=== PATIENT | female | born 1990 | race Caucasian/White ===

== ENCOUNTER 2022-09-04 14:56 | Outpatient (CLI) | payer MEDICARE, MEDICAID, SELFPAY ==
--- NOTE | 2022-09-04 15:00 | CRLHL7_ITS ---
For Patients: As a result of the Century Cures Act, medical imaging exams and procedure reports are released immediately into your electronic medical record. You may view this report before your referring provider. If you have questions, please contact your health care provider. INDICATION: Acute DVT of right lower extremity, unspecified vein. Known thrombus diagnosed on 08/30/2022 in [place]. Patient currently on Eliquis. Increased pain and swelling. COMPARISON: None available. TECHNIQUE: A compression venous ultrasound exam was performed of the right lower extremity using spence-scale imaging, color Doppler and spectral Doppler analysis. FINDINGS: Sonographic imaging of the right lower extremity demonstrates normal compressibility and color Doppler venous blood flow within the common femoral vein, deep femoral vein, and the proximal greater saphenous vein. There is thrombus within the right mid to distal femoral vein, popliteal vein, and posterior tibial and peroneal veins. 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 There are both occlusive and nonocclusive portions of the thrombus. Limited imaging of the contralateral groin demonstrates a normal spectral waveform and color Doppler venous blood flow within the left common femoral vein. IMPRESSION: 1. Positive for acute DVT involving the right femoral, popliteal, posterior tibial, and peroneal veins. 2. Findings discussed with Dina Johnson at 4:52 p.m. on 09/04/2022. Dictated by Natali Jordan MD @ 09/04/2022 4:18:50 PM (Electronically Signed)
--- NOTE | 2022-09-12 10:38 | ONC.NURNOTE ---
Received referral from [facility] for acute DVT for patient. Obgyn Hospitalist Physician contacted [facility] that still missing information, they note that patient has a guardian and that they are waiting on the appropriate paperwork in order to send all information. Report from ultrasound was printed out. Will wait to schedule until notes are received from [facility].
== END 2022-09-04 14:57 | disposition home or self-care (01) ==
LOC: US 14:58
PROVIDERS: PCP Family Medicine; Visit Provider Family Medicine
DX: I82.401 Acute embolism and thrombosis of unspecified deep veins of right lower extremity (principal); I82.621 Acute embolism and thrombosis of deep veins of right upper extremity
CPT/HCPCS: 93971

== ENCOUNTER 2023-03-31 08:31 | Day surgery (SDC) | payer MEDICARE, MEDICAID, SELFPAY ==
[2023-03-31] VITALS (19 sets, daily range): BP systolic 93–118; BP diastolic 56–75; PULSE 69–104; RESP 16–22; TEMP 36.4–37.5; O2SAT 88–100; BMI 32.1
[2023-03-31] MEDS: LACTATED RINGERS 1000 ML 1,000 ML 100 ML IV ×2 (09:10→11:44)
[2023-03-31] MEDS: SODIUM CHLORIDE 0.9 % (FLUSH) 10 ML SYRINGE IVF (09:10)
[2023-03-31] MEDS: ETHYL CHLORIDE 1 APPLICATION 1 APPLIC TOPICAL (09:10)
[2023-03-31] MEDS: MIDAZOLAM HCL 1 MG/ML inj IVP (09:15)
--- NOTE | 2023-03-31 09:43 | P.GYNPRC_ITS ---
Procedure Note Date of procedure: 03/31/23 Pre-op diagnosis: Menorrhagia with irregular cycle, dysmenorrhea, mild developmental delay Post-op diagnosis: same Procedure: Total laparoscopic hysterectomy Bilateral salpingectomies Diagnostic cystoscopy Anesthesia: GETA Complications: None. Surgeon: Amy Sanchez MD Technical Research Scientist: Ivonne Cesar Pathology: specimen obtained, sent to pathology Disposition: PACU Procedure Description: After obtaining informed consent, the patient was taken to the operating room where general anesthesia was obtained without difficulty. She was prepared and draped in the normal sterile fashion in the low dorsal lithotomy position. A Paul catheter was inserted into the bladder and left to gravity drainage. A medium Graves open-sided speculum was introduced into the vagina. The cervix was visualized and grasped along its anterior lip with a single-tooth tenaculum. The uterus was gently sounded. Sound length was found to be [] cm. The cervix was gently dilated to a #5 dilator. I then placed a [small/medium/large] VCare uterine manipulator. The tenaculum and speculum were removed. The green VCare cup was digitally pressed up against the cervix and then cinched in place with the blue accessory cup. I then changed gloves and my attention was turned to the abdomen. The inferior aspect of the umbilical fold was injected with 0.25% Marcaine plain. A 12 mm vertical incision was then made within the umbilical fold using a scalpel. A direct entry technique was used to place an 11 mm laparoscopic port with CO2 gas set to a 5 mmHg. The trocar was removed leaving the sleeve in place. The CO2 gas flow was turned to high flow to achieve pneumoperitoneum. The 10 mm laparoscope was used then to carefully inspect the abdomen and pelvis with findings noted above. Pictures were taken for documentation purposes. The patient was placed in Trendelenburg positioning. Two additional 11 mm ports were placed in the right and left lower quadrants under direct visualization after first anesthetizing the skin and fascia with 0.25% Marcaine plain. Once the ports were in place, the VCare manipulator was used to elevate the uterus. The ureters were identified bilaterally along their courses in the pelvic sidewalls. The VCare cup was visualized and palpated with a blunt grasper. The right tube [and ovary] [was/were] elevated with a graspers. The halo device was used to [seal the right infundibulopelvic ligament vessels and transect them/dissect the tube from it's ovarian and broad ligament and cornual attachments before removing the tube through a lower port]. Excellent hemostasis was obtained. [The remaining broad ligament attachments were sealed and transected with the halo device.] The right round ligament was then sealed in a wide swath and transected with the halo. Excellent hemostasis was obtained. The broad ligament was then opened using the halo anteriorly and posteriorly along the cervix from the right within the confines of the VCare cup. Pressure was maintained on the uterine manipulator the whole time. The right uterine vessels were sealed in a wide swath and transected with the halo, then the tissues over the VCare cup edge on the right side were thinned using the halo to the midline posteriorly and anteriorly so that the fascial layer could be identified. The left tube [and ovary] [was/were] elevated with a graspers. The halo device was used to [seal the left infundibulopelvic ligament vessels and transect them/dissect the tube from it's ovarian and broad ligament and cornual attachments before removing the tube through a lower port]. Excellent hemostasis was obtained. [The remaining broad ligament attachments were sealed and transected with the halo device.] The left round ligament was then sealed in a wide swath and transected with the halo. Excellent hemostasis was obtained. The broad ligament was then opened using the halo anteriorly and posteriorly along the cervix from the left within the conf elidia of the VCare cup. Pressure was maintained on the uterine manipulator the whole time. The left uterine vessels were sealed in a wide swath and transected with the halo, then the tissues over the VCare cup edge on the left side were thinned using the halo to the midline posteriorly and anteriorly so that the fascial layer could be identified. Once an adequate dissection was made circumferentially, the halo was removed and the gyrus J-hook used to incise the tissue circumferentially around the cervix within the groove of the VCare cup. Once the dissection was completed circumferentially, I was able to go below and remove the uterine manipulator and the uterus. The uterus was left in the vagina to aid in maintaining pneumoperitoneum. The vaginal cuff was reapproximated in a running fashion with a V-Loc suture starting from the left side and running across to the right and then back to the midline where the suture was cut flush with the tissues. The pelvis was copiously irrigated and hemostasis visualized. Preparations were then made for cystoscopy. Fluorescein was administered intravenously along with the IV fluids. The Paul catheter was removed. The patient was flattened out. Cystoscopy was performed using sterile normal saline as distending medium. The bladder was carefully inspected and noted to be free of filling defects or suture material. Both ureteral orifices were easily visualized and fluorescein tinged urine jets were noted from both sides. The cystoscope was then removed. The Paul catheter was replaced into the bladder. I then changed gloves again and my attention was once again turned to the abdomen. The abdomen and pelvis were again irrigated and inspected for hemostasis. [Fariba was placed over the vaginal cuff and raw edges for extra hemostasis.] All instruments were then removed under direct visualization. Pneumoperitoneum was allowed to escape. The fascia was reapproximated at the umbilicus with 0 Vicryl. The skin at all 3 port sites was closed in a subcuticular fashion with 4-0 Vicryl. LiquiBand was then placed over the incisions. The patient tolerated the procedure well. Sponge, lap, needle, and instrument counts were reported as correct x2. The patient was taken to the recovery room awake and in stable condition. She did receive 2 g of IV Ancef preoperatively. Uterine weight was [] g. PATHOLOGY SPECIMEN(S): []
[2023-03-31 09:57] LABS: Creatinine* 0.7 mg/dL (0.5-1.5); Est. Creatinine Clearance* 98.71; Estimated Glomerular Filt Rate 117 ml/min
[2023-03-31] MEDS: CEFAZOLIN 2 GM INJ IVP (10:55)
--- NOTE | 2023-03-31 11:01 | P.NB_ITS ---
Nerve Block Nerve Block Time Seen by Provider: 10:52 Date Seen: 03/31/23 Type of block requested by surgeon for post-operative analgesia: TAP Side: bilateral Time out performed: Yes Verification of patient name: Yes Verification of date of : Yes Site marking: site marked Name of person performing procedure: Joby Continuous monitoring Was continuous monitoring of O2 sat, B/P, almond paste mixer, recorded every 15 minutes?: Yes Procedure Checklist: sterile prep, needles and gloves Ultrasound guided. Images saved: Yes Medications given in 5ml increments after negative aspiration: Marcaine %: 0.25 mL: 30 Needle gauge: 20 and Exparel mL: 10 Patient tolerated procedure well: Yes Additional comments: Needle noted adjacent to nerve Block Charges Block Charge (with Pro Fee): TAP Bilateral Use of Ultrasound Machine for Block: Yes- US Guidance/pain block
--- NOTE | 2023-03-31 11:02 | W.ANESCHARGE ---
Anesthesia Charges Start Date/Time Anesthesia Start Date: 03/31/23 Anesthesia Start Time: 10:14 Stop Date/Time Anesthesia Stop Date: 03/31/23 Anesthesia Stop Time: 14:24
[2023-03-31] MEDS: BUPIVACAINE 0.25% 30 ML 20 ML INJECTION (11:25)
--- NOTE | 2023-03-31 13:16 | P.GSOP_ITS ---
Operative Note Pre-op diagnosis: 1. Intraoperative consult for firm and dilated appendix. Post-op diagnosis: Same Type of Procedure: 1. Laparoscopic appendectomy. Indications: 32-year-old female was undergoing a hysterectomy. Her appendix was visualized intraoperatively and was firm to palpation and minimally dilated. OBGYN service asked made to perform an appendectomy. This was discussed with the patient's mother who was waiting same-day surgery and she gave her consent to proceed. Procedure Description: When the operating room was entered laparoscopic ports were already in place and hysterectomy was completed. Patient's infraumbilical 10 mm port was upsized to a 12 mm port. An additional 5 mm port was placed in the left upper quadrant under direct visualization. The appendix was visualized and was minimally dilated with no suppurative exudate overlying the appendix. The appendix was then mobilized off the abdominal wall with Olympus Powerseal. The appendiceal artery was not clearly visualized. The appendiceal mesentery was divided from the appendix with the Powerseal. When the appendix was circumferentially diss ected from the appendiceal mesentery, the mesentery was examined closely. A pulsation was noted in the appendiceal fat. There was no active bleeding but I elected to place a 5 mm clip over the area where the proposed artery was thought to be. The appendiceal base was clearly visualized. The appendix was then stapled off the cecum with Endo-ETHAN vascular load. The appendix was placed into the bag and removed from the abdomen through the infraumbilical incision. The appendix was sent to pathology. The fascia of infraumbilical incision was then closed with 2 interrupted 0-0 Vicryl sutures. At this time I left the operating room and OBGYN continued with their final parts of the procedure. Findings: Minimally dilated and firm to palpation appendix. Anesthesia: GETA Surgeon: Gary Ramos MD Estimated blood loss (mL): 2 Specimen: Appendix Condition: stable Disposition: no change Date of procedure: 03/31/23
--- NOTE | 2023-03-31 14:28 | P.GYNPRC_ITS ---
Procedure Note Date of procedure: 03/31/23 Pre-op diagnosis: Dysmenorrhea, Menorrhagia with irregular cycle, mild developmental delay Post-op diagnosis: other (Same, plus endocervical polyp and dilated, firm appendix) Procedure: Endocervical polypectomy Total laparoscopic hysterectomy Bilateral salpingectomies Diagnostic cystoscopy General surgery consult (Dr. Ramos) Appendectomy (Dr. Ramos) Vaginal repair Anesthesia: GETA Complications: None. Surgeon: Amy Sanchez Workers' Compensation Magistrate: Ivonne Cesar Estimated blood loss (mL): 100 IV fluids (mL): 2,000 Urine Output (mL): 600 Pathology: specimen obtained, sent to pathology (Endocervical polyp, uterus, bilateral fallopian tubes, appendix) Condition: stable Disposition: PACU Findings: Intact hymen, which tore with placement of VCare uterine manipulator. Polyp arising from the endocervix, extruding from the cervical os. Normal uterus, fallopian tubes and ovaries bilaterally. Dilated, firm appendix. Procedure Description: After obtaining informed consent, the patient was taken to the operating room where general anesthesia was obtained without difficulty. She was prepared and draped in the normal sterile fashion in the low dorsal lithotomy position. A Paul catheter was inserted into the bladder and left to gravity drainage. A small Linda open-sided speculum was introduced into the vagina. A cervical polyp was identified. This was grasped with a ring forceps and twisted on its base until it came free. The cervix was grasped along its anterior lip with a single-tooth tenaculum. The uterus was found to be retroverted. The uterus gently dilated to a #5 dilator, beginning with the smallest dilator available. I then placed a small VCare uterine manipulator. In the process, the hymenal tissue tore on both the right and the left at the 3-4 o'clock and the 7-8 o'clock positions. The tenaculum and speculum were removed. The green VCare cup was digitally pressed up against the cervix and then cinched in place with the blue accessory cup. I then changed gloves and my attention was turned to the abdomen. The inferior aspect of the umbilical fold was injected with 0.25% Marcaine plain. A 12 mm vertical incision was then made within the umbilical fold using a scalpel. A direct entry technique was attempted to place an 11 mm laparoscopic port with CO2 gas set to a 5 mmHg. This was unsuccessful, so 2 small Silvia clamps were used to elevate the fascia, which was then incised sharply with Deshpande scissors. The underlying peritoneum was grasped with 2 Arlette clamps and also entered sharply with scissors. The 11 mm laparoscopic port was then placed through the defect without difficulty in fixed in place with the attached balloon. The trocar was removed leaving the sleeve in place. The CO2 gas flow was turned to high flow to achieve pneumoperitoneum. The 10 mm laparoscope was used then to carefully inspect the abdomen and pelvis with findings noted above. Pictures were taken for documentation purposes. The patient was placed in Trendelenburg positioning. Two additional ports were placed in the right (11 mm) and left (5 mm) lower quadrants under direct visualization after first anesthetizing the skin and fascia with 0.25% Marcaine plain. Once the ports were in place, the VCare manipulator was used to elevate the uterus. The ureters were identified bilaterally along their courses in the pelvic sidewalls. The VCare cup was visualized and palpated with a blunt grasper. The right tube was elevated with a graspers. The Olympus Powerseal device was used to dissect the tube from its ovarian and broad ligament and cornual attachments before removing the tube through a lower port. Excellent hemostasis was obtained. The right round ligament was then sealed in a wide swath and transected with the Olympus Powerseal. Excellent hemostasis was obtained. The broad ligament was then opened using the Olympus Powerseal anteriorly and posteriorly along the cervix from the right within the confines of the VCare cup. Pressure was maintained on the uterine manipulator the whole time. The right uterine vessels were sealed in a wide swath and transected with the Olympus Powerseal, then the tissues over the VCare cup edge on the right side were thinned using the Olympus Powerseal to the midline posteriorly and anteriorly so that the fascial layer could be identified. The left tube was elevated with a graspers. The Olympus Powerseal device was used to dissect the tube from its ovarian and broad ligament and cornual attachments before removing the tube through a lower port. Excellent hemostasis was obtained. The left round ligament was then sealed in a wide swath and transected with the Olympus Powerseal. Excellent hemostasis was obtained. The broad ligament was then opened using the Olympus Powerseal anteriorly and posteriorly along the cervix from the left within the confines of the VCare cup. Pressure was maintained on the uterine manipulator the whole time. The left uterine vessels were sealed in a wide swath and transected with the Olympus Powerseal, then the tissues over the VCare cup edge on the left side were thinned using the Olympus Powerseal to the midline posteriorly and anteriorly so that the fascial layer could be identified. Once an adequate dissection was made circumferentially, Sajanlab spatula used to incise the tissue circumferentially around the cervix within the groove of the VCare cup. Once the dissection was completed circumferentially, I was able to go below and remove the uterine manipulator and the uterus. The uterus was left in the vagina to aid in maintaining pneumoperitoneum. The vaginal cuff was reapproximated in a running fashion with a V-Loc suture starting from the left side and running across to the right and then back to the midline where the suture was cut flush with the tissues. The pelvis was copiously irrigated and hemostasis visualized. At this point, general surgeon Dr. Ramos was consulted for appendectomy. Please see her separate note for details of this procedure. A 4th laparoscopic port (5 mm) was inserted by Dr. Ramos, and the umbilical port was extended to 12 mm. Preparations were then made for cystoscopy. Methylene blue was administered intravenously along with the IV fluids. The uterus was removed from the vagina. The Paul catheter was removed. The patient was flattened out. Cystoscopy was performed using sterile normal saline as distending medium. The bladder was carefully inspected and noted to be free of filling defects or suture material. Both ureteral orifices were easily visualized and blue-tinged urine jets were noted from both sides. The cystoscope was then removed. The Paul catheter was replaced into the bladder. There was some active bleeding noted in the vagina. The vaginal cuff was inspected using a small Linda speculum, and found to be hemostatic. The bleeding was found to be coming from 2 hymenal tears at the introitus. These were oversewn in a running locking fashion with 3-0 chromic. Excellent he mostasis was visualized. I then changed gloves again and my attention was once again turned to the abdomen. The abdomen and pelvis were again irrigated and inspected for hemostasis. The Luis-Zeny device was used to reapproximate the fascia in the right lower quadrant using an interrupted suture of 0 Vicryl. The fascia had already been reapproximated at the umbilicus with [address] Ramos at the conclusion of the appendectomy. All instruments were then removed under direct visualization and pneumoperitoneum was allowed to escape. Three interrupted sutures of 3-0 Vicryl were used at the umbilicus to reapproximate the subcutaneous adipose tissue. The skin at all 4 port sites was closed in a subcuticular fashion with 4-0 Monocryl (3 port sites) and 4-0 Vicryl (RLQ port). Surgical glue was then placed over the incisions. The patient tolerated the procedure well. Sponge, lap, needle, and instrument counts were reported as correct x2. The patient was taken to the recovery room awake and in stable condition. She did receive 2 g of IV Ancef preoperatively and 30 mg IV Toradol at the conclusion of the procedure. A postoperative debriefing was done at the conclusion of the procedure, which confirmed the procedures done and the pathology specimens to be sent. Uterine weight was 82 g.
--- NOTE | 2023-03-31 14:31 | W.ANESCHARGE ---
Anesthesia Charges Start Date/Time Anesthesia Start Date: 03/31/23 Anesthesia Start Time: 10:14 Stop Date/Time Anesthesia Stop Date: 03/31/23 Anesthesia Stop Time: 14:24
[2023-03-31] MEDS: LACTATED RINGERS 1000 ML 1,000 ML 35 ML IV (14:54)
--- NOTE | 2023-03-31 15:09 | SUR.PHASEI ---
patient met discharge criteria per anesthesia
[2023-03-31] MEDS: KETOROLAC 30 MG/ML inj IVP (20:39)
[2023-04-01 00:12] VITALS: BP 127/69; PULSE 101; RESP 16; TEMP 37.1; O2SAT 93
[2023-04-01] MEDS: KETOROLAC 30 MG/ML inj IVP (02:38)
[2023-04-01 04:21] VITALS: BP 103/63; PULSE 89; RESP 16; TEMP 36.6; O2SAT 95
[2023-04-01] MEDS: ENOXAPARIN 40 MG/0.4 ML INJ SUBCUT (06:18)
[2023-04-01 06:44] LABS: Hemoglobin* 11.9 gm/dL (12.0-16.0); Platelet Count* 184 K/uL (140-440)
[2023-04-01 06:50] LABS: Creatinine* 0.6 mg/dL (0.5-1.5); Est. Creatinine Clearance* 115.16; Estimated Glomerular Filt Rate 121 ml/min
[2023-04-01 07:29] VITALS: BP 116/69; PULSE 85; RESP 16; TEMP 36.4; O2SAT 97
[2023-04-01 07:34] VITALS: BP 116/69; PULSE 85; RESP 16; TEMP 36.4; O2SAT 97
[2023-04-01] MEDS: ACETAMINOPHEN 160 MG/5 ML CUP 650 MG PO (08:49)
--- NOTE | 2023-04-01 10:13 | PM.GYNDS1 ---
DS: Providers Provider Time Seen by Provider: 09:00 Date Seen: 04/01/23 Date of admission: 03/31/2023 Primary care physician: Irene Mason MD Admitting Clinician: Amy Sanchez MD Attending Physician on discharge: Amy Sanchez MD Date of Discharge: 04/01/23 DS: Diagnosis Discharge Diagnosis (1) Status post laparoscopic hysterectomy: Status: Acute Problem details: Laparoscopic hysterectomy with bilateral salpingectomies, endocervical polypectomy, diagnostic cystoscopy (2) Status post appendectomy: Status: Acute Problem details: Done at time of hysterectomy BELT CLEANER-Discharge Summary Hospital Course Hospital Course Narrative: Patient is a 32 year old admitted on 03/31/2023 for surgical management of dysmenorrhea and menorrhagia. Her past medical history is significant for mild developmental delay and a history of DVT. Indication for surgery: dysmenorrhea and menorrhagia. Intraoperative findings were notable for an endocervical polyp, normal uterus and bilateral fallopian tubes and ovaries, and a dilated firm appendix. She had an uncomplicated surgery. Postoperative course has been uneventful. Vitals have been stable. She has remained afebrile. Today, on postoperative day 1, she reports the pain is well controlled. She has been able to ambulate Without difficulty. She is tolerating regular diet. She is passing flatus. Paul catheter has been removed, and she is voiding without difficulty. Time Spent with Patient Time attestation: Total time spent providing and/or coordinating discharge services: Time spent: Less than 30 minutes BELT CLEANER - Exam Physical Exam: Vital signs: Temp Pulse Resp BP Pulse Ox O2 Del Method O2 Flow Rate 97.6 F 85 16 116/69 97 Room Air 0 04/01/23 07:34 04/01/23 07:34 04/01/23 07:34 04/01/23 07:34 04/01/23 07:34 04/01/23 07:34 04/01/23 07:34 Constitutional: Constitutional: no acute distress Routine Respiratory Exam: Respiratory: Present CTA bilaterally; Absent crackles, rhonchi or wheezes Routine Cardiovascular Exam: Cardiovascular: Present RRR; Absent murmur Routine Abdominal Exam: Abdominal: Present normal bowel sounds and soft; Absent distended or tenderness Comments: Laparoscopic incision sites clean, dry, intact Routine Extremities Exam: Extremities: Present normal inspection; Absent calf tenderness or pedal edema Detailed Lower Extremity Exam: Comments: SCDs in place Routine Psychiatric Exam: Psychiatric: Present normal affect BELT CLEANER - DS: Data Data Completed and Pending Labs on day of discharge: Labs from last 24 hours 04/01/23 03/31/23 06:14 09:25 Hgb 11.9 L Plt Count 184 Creatinine 0.6 Estimated Creat Clear 115.16 Estimated GFR 121 Blood Type A Positive Antibody Screen NEGATIVE Procedures Procedures: Procedures Operation Date: 03/31/23 09:55 Actual Procedure Side Surgeon p Total Laparoscopic Hysterectomy, Bilateral Salpingectomies, Diagnostic Cystoscopy, cervical polypectomy Amy Sanchez MD s Laparoscopic Appendectomy Gary Ramos MD s Vaginal Repair Amy Sanchez MD Complications: none Discharge Plan Discharge Disposition: Home, Self-Care Discharging Surgeon: Amy Sanchez Follow-Up Appointment: 2 weeks in [facility] Prescriptions: New oxycodone 5 mg/5 mL Solution 5 mg PO Q6H PRNQty: 100 0RF Continued fluoxetine 20 mg/5 mL (4 mg/mL) solution 20 mg PO ONCE albuterol sulfate [Ventolin HFA] 90 mcg/actuation HFA aerosol inhaler inhalation cetirizine 1 mg/mL solution 10 mg PO DAILY Eliquis DVT-PE Treat 30D Start 5 mg (74 tabs) tablets,dose pack PO Activity Level: Activity as Tolerated Discharge Diet: Regular Patient Instructions: General Anesthesia (DC), Laparoscopic Appendectomy (DC), Post-Operative Instructions: Appendectomy Additional Instructions: Discharge instructions were reviewed with the patient including signs and symptoms of infection and medications to use for pain.? Because she will be restarting her Eliquis tomorrow, she should rely on the Tylenol and oxycodone if needed, rather than using the ibuprofen. A good bowel regimen was also recommended. ? No lifting greater than 20-25 pounds for 6 weeks. Nothing per vagina for 6 weeks. Off work or school for 4-6 weeks, may return as tolerated while maintaining lifting restrictions. Forms: Work/School Release Follow-up: Irene Mason MD [Primary Care Provider] - Discharge Orders: Discharge Order (Routine); Ordered 04/01/23 Ordered By: Amy Sanchez
[2023-04-01 10:54] VITALS: BP 97/68; PULSE 85; RESP 16; TEMP 36.8; O2SAT 97
[2023-04-01 11:05] VITALS: BP 97/68; PULSE 85; RESP 16; TEMP 36.8; O2SAT 97
--- NOTE | 2023-04-01 12:53 | PC.NURSE ---
At 1025 RN updated MD that patient voided. See orders.
== END 2023-04-01 11:03 | disposition home or self-care (01) ==
LOC: OR 08:31 → OB 11:06
PROVIDERS: Surgery; PCP Family Medicine; Visit Provider Obstetrics & Gynecology
PROC: 0UT94ZZ Resection of Uterus, Percutaneous Endoscopic Approach (ICD-10-PCS; CPT 58571; principal; 2023-03-31 09:45)
PROC: 0DTJ4ZZ Resection of Appendix, Percutaneous Endoscopic Approach (ICD-10-PCS; CPT 44970; 2023-03-31 09:45)
PROC: 0UQG0ZZ Repair Vagina, Open Approach (ICD-10-PCS; CPT 58571; 2023-03-31 09:45)
DX: N94.6 Dysmenorrhea, unspecified (principal); N92.1 Excessive and frequent menstruation with irregular cycle; N84.1 Polyp of cervix uteri; D25.1 Intramural leiomyoma of uterus; K38.8 Other specified diseases of appendix; R62.50 Unspecified lack of expected normal physiological development in childhood; G89.18 Other acute postprocedural pain
CPT/HCPCS: 58571; 57500; 44970; 00840; 36415; 64488; 76942; 82565; 85018; 85049; 86850; 86900; 86901; 88304; 88305; 88307; A9270; C9290; J0330; J0665; J0690; J1100; J1170; J1650; J1885; J2250; J2371; J2405; J2704; J2710; J3010; J3475; J7120

== ENCOUNTER 2023-07-05 16:04 | Outpatient (CLI) | payer MEDICARE, MEDICAID, SELFPAY | END 2023-07-05 16:05 | disposition home or self-care (01) | LOC: AMB 07-07 10:14 | PROVIDERS: PCP Family Medicine; Visit Provider Student in an Organized Health Care Education/Training Program | DX: S09.90XA Unspecified injury of head, initial encounter (principal); W01.198A Fall on same level from slipping, tripping and stumbling with subsequent striking against other object, initial encounter; Y93.66 Activity, soccer; Y92.322 Soccer field as the place of occurrence of the external cause | CPT/HCPCS: A0998 ==

== ENCOUNTER 2024-11-25 12:04 | Outpatient (CLI) | payer MEDICARE, MEDICAID, SELFPAY | END 2024-11-25 12:05 | disposition home or self-care (01) | LOC: AMB 11-28 09:29 | PROVIDERS: PCP Family Medicine; Visit Provider Internal Medicine | DX: M79.609 Pain in unspecified limb (principal); Z86.718 Personal history of other venous thrombosis and embolism | CPT/HCPCS: A0998 ==

== ENCOUNTER 2024-11-25 12:41 | Emergency (ER) | payer MEDICARE, MEDICAID, SELFPAY ==
--- OUTSIDE RECORDS SUMMARY | 2023-08-17 09:00 | XMS_ITS | Continuity of Care Document ---
Author Organization [facility] Address [address] [address] [place] [address] Phone Care Team Providers Care Senior Caregiver Name Role Phone Shade Mason MD, Jake Galloway Unavailabl e Advance Directives Directive Yes / No Effective Date File Name No Information Encounters Encounter Description Practice Location Reason(s) For Visit Diagnoses Date Provider Providers Copied on Encounter [facility], [address] [address], [place], [place], [id number], [place] tel:[phone] [facility] No Information Shade Joseph. [address] [facility], [facility] [address], [place], [place], [id number], [place]. tel:[phone] Family History Family Member Type Diagnosis Age At Onset No Information Payers Payer name Insurance type Covered alliance party ID Authoriza tion(s) No Information Social History Type Description Quantity Date Captured Comments Sex Female Smoking Status No Information Chief Complaint And Reason For Visit No Information Reason For Referral Reason For Referral No Information History Of Present Illness Encounter Date Complaint History Of Prese nt Illness No Information Functional Status Date Functional Assessmen t No Information Instructions Date Instruction Additional Infor mation No Information Assessments Type Assessment Date No Information Patient Care Teams Name Effective Dates (start - stop) Status Members No Information
--- OUTSIDE RECORDS SUMMARY | 2023-08-17 09:00 | XMS_ITS | Continuity of Care Document ---
Author Organization [facility] Address [address] [address] [place] [address] Phone Care Team Providers Care Building Mover Name Role Phone Shade Mason MD, Jake Galloway Unavailabl e Advance Directives Directive Yes / No Effective Date File Name No Information Encounters Encounter Description Practice Location Reason(s) For Visit Diagnoses Date Provider Providers Copied on Encounter [facility], [address] [address], [place], [place], [id number], [place] tel:[phone] [facility] No Information Shade Joseph. [address] [facility], [facility] [address], [place], [place], [id number], [place]. tel:[phone] Family History Family Member Type Diagnosis Age At Onset No Information Payers Payer name Insurance type Covered green party ID Authoriza tion(s) No Information Social [...]
--- OUTSIDE RECORDS SUMMARY | 2024-10-11 10:45 | XMS_ITS | Encounter Summary ---
Author Organization [facility] Address [address] [place] [id number] Care Team Providers Care Tutor Coordinator Name Role Phone Elsewhere, Pcp Primary Care Provider Unavailabl e Reason for Visit * Reason Onset Date Comments Pre-visit Intake 10/11/2024 Encounter Details Date Type Department Care Team (Latest Contact Info) Description 10/11/2024 10:45 AM CDT Clinical Communication Virtual Review in [place], [place] [address] [place] [address] Pre-visit Intake Social History Tobacco Use Types Packs/Day Years Used Date Smoking Tobacco: Never Smokeless Tobacco: Never Tobacco Cessation:Counseling Given: Not Answered Alcohol Use Standard Drinks/Week Comments Yes 1 (1 standard drink = 0.6 oz pur e alcohol) [facility] Utilities Answer Date Recorded In the past 12 months has [facility] [employer], oil, or water [employer] threatened to shut off services in your home? No 07/19/2023 Humiliation, Afraid, Rape, and Kick questionnair e Answer Date Recorded Within the last year, have y ou been afraid of your partner or ex-partner? No 07/08/2022 Within the last year, have y ou been humiliated or emotionally abused in other ways by your partner or ex-partner? No Within the last year, have y ou been kicked, hit, slapped, or otherwise physically hurt by your partner or ex-partner? No 07/08/2022 Within the last year, have y ou been raped or forced to have any kind of sexual activity by your partner or ex-partner? No 07/08/2022 Social Connection and Isolat ion Panel [NHANES] Answer Date Recorded In a typical week, how many times do you talk on the phone with family, friends, or neighbors? More than three times a week 07/08/2022 How often do you get togethe r with friends or relatives? More than three times a week 07/08/2022 How often do you attend chur or quaker services? 1 to 4 times per year 07/08/2022 Do you belong to any clubs o r organizations such as zoroastrianism groups, unions, fraternal or athletic groups, or school groups? Yes 07/08/2022 How often do you attend meet ings of the clubs or organizations you belong to? More than 4 times per year 07/08/2022 Are you , , di vorced, , never , or living with a partner? Never 07/08/2022 AUDIT-C Answer Date Recorded Q1: How often do you have a drink containing alc ohol? 2-4 times a month 07/08/2022 Q2: How many drinks containi ng alcohol do you have on a typical day when you are drinking? 1 or 2 07/08/2022 Q3: How often do you have si x or more drinks on one occasion? Never 07/08/2022 Overall Financial Resource Strain (CARDIA) Answe r Date Recorded How hard is it for you to pa y for the very basics like food, housing, medical care, and heating? Not hard at all 07/08/2022 [facility] - Occupational Stress Questionnaire Answer Date Recorded Do you feel stress - tense, restless, nervous, or anxious, or unable to sleep at night because your mind is troubled all the time - these days? To some extent 07/08/2022 Exercise Vital Sign Answer Date Recorde d On average, how many days pe r week do you engage in moderate to strenuous exercise (like a brisk walk)? 4 days 07/19/2023 On average, how many minutes do you engage in exercise at this level? 50 min 07/19/2023 Hunger Vital Sign Answer Date Recorded Within the past 12 months, y ou worried that your food would run out before you got the money to buy more. Never true 07/19/19 Within the past 12 months, t he food you bought just didn't last and you didn't have money to get more. Never true 07/19/2023 PRAPARE - Transportation Answer Date Re corded In the past 12 months, has l ack of transportation kept you from medical appointments or from getting medications? No 09/2023 In the past 12 months, has l ack of transportation kept you from meetings, work, or from getting things needed for daily living? No 07/19/2023 Nutrition Answer Date Recorded On average, how many serving s of fruits and vegetables do you eat per day (serving size is equal to 1 cup or approximately the size of a tennis ball)? 3-5 07/19/2023 Dental Answer Date Recorded Dental: Regular Dentist Yes 07/08/19 Employment Answer Date Recorded Employment status Unemployed/not in e paid workforce but seeking employment 07/19/2023 Housing Stability Answer Date Recorded What is your living situation today? [facility] 07/19/2023 Education Answer Date Recorded What is the highest level of school you have completed or the highest degree you have received? 12th grade 07/08/2022 Comments Unknown Sex and Gender Information Value Date Recorded Sex Assigned at Female 07/08/2022 2:29 PM PICKING TABLE WORKER Legal Sex Female 3:08 PM PICKING TABLE WORKER Gender Identity Female 07/08/2022 2:29 PM PICKING TABLE WORKER Sexual Orientation Straight 07/08/2022 2: 29 PM PICKING TABLE WORKER documented as of this encounter Plan of Treatment Upcoming Encounters Date Type Department Care Team (Late st Contact Info) Description 12/21/2024 2:30 PM CDT Office Visit Division of Plastic Surgery in [place], [place] [address] [place] [phone] Layla Lara APRN, C.N.P., D.N.P. [address] [place] [phone] 02/10/2025 10:30 AM CDT Clinical Communication Virtual Review in [place], [place] [address] [place] [address] 02/14/2025 11:15 AM CDT Office Visit Department of Dermatology in [place], [place] [address] [place] [address] Casper Avila M.D. [address] [place] [address] documented as of this encounter Visit Diagnoses Not on filedocumented in this encounter Care Teams Tutor Coordinator Relationship Specialty Start Date End Date Elsewhere, Pcp PCP - General Family Medicine 05/29/17 documented as of this encounter
--- OUTSIDE RECORDS SUMMARY | 2024-10-12 | XMS_ITS | Encounter Summary ---
Author Organization [facility] Address [address] [place] [address] Care Team Providers Care Meteorological Engineer Name Role Phone Elsewhere, Pcp Primary Care Provider Unavailabl e Encounter Details Date Type Department Care Team (Late st Contact Info) Description 10/12/2024 Ancillary Procedure Department of Dermatology Social History Tobacco Use Types Packs/Day Years Used Date Smoking Tobacco: Never Smokeless Tobacco: Never Alcohol Use Standard Drinks/Week Comments Yes 1 (1 standard drink = 0.6 oz pur e alcohol) [facility] Utilities Answer Date Recorded In the past 12 months has e electric, gas, oil, or water [employer] threatened to shut off services in your [...] 07/08/2022 How often do you attend chur ch or methodist services? 1 to 4 times per year 07/08/2022 Do you belong to any clubs o r organizations such as baptism groups, unions, fraternal or athletic groups, or [...] and heating? Not hard at all 07/08/2022 [facility] - Occupational Stress [...] money to buy more. Never true 07/19/19 24 Within the past 12 months, t he [...] your living situation today? I have a [facility] place to live 07/19/2023 Education Answer Date Recorded What is the highest level of school you have completed or the highest degree you have received? 12th grade 07/08/2022 Comments Unknown Sex and Gender Information Value Date Recorded Sex Assigned at Female 07/08/2022 2:29 PM ACTION FINISHER Legal Sex Female 3:08 PM ACTION FINISHER Gender Identity Female 07/08/2022 2:29 PM ACTION FINISHER Sexual Orientation Straight 07/08/2022 2: 29 PM ACTION FINISHER documented as of this encounter Plan of Treatment Upcoming Encounters Date Type Department Care Team (Late st Contact Info) Description 12/21/2024 2:30 PM CDT Office Visit Division of Plastic Surgery in [place], [place] [address] [place] [phone] Layla Lara APRN, C.N.P., D.N.P. [address] [place] [phone] 02/10/2025 10:30 AM CDT Clinical Communication Virtual Review in [place], [place] [address] [place] [phone] 02/14/2025 11:15 AM CDT Office Visit Department of Dermatology in [place], [place] [address] [place] [phone] Casper Avila M.D. [address] [place] [phone] documented as of this encounter Procedures Procedure Name Priority Date/Time Associated Diagnosis Comments DERMATOLOGY IMAGE EXAM Routine 10/12/2024 12:00 AM CDT documented in this encounter Results * Nose 510-Dermatology Image Exam (10/12/2024 12:00 AM CDT) Narrative [facility] - 10/13/2024 9:23 AM CDT This order has been created and auto-finalized to support the import of images acquired without order. The clinical documentation to support these images can be found on the encounter that produced images. us Provider Not In System IMG NON RAD IMAGING PROCE DURES Final Result [facility] NA documented in this encounter Visit Diagnoses Not on filedocumented in this encounter Care Teams Meteorological Engineer Relationship Specialty Start Date End Date Elsewhere, Pcp PCP - General Family Medicine 05/29/17 documented as of this encounter
--- OUTSIDE RECORDS SUMMARY | 2024-10-12 14:40 | XMS_ITS | Encounter Summary ---
Author Organization [facility] Address [address] [place] [phone] Care Team Providers Care Blind Slat Stapling Machine Operator Name Role Phone Elsewhere, Pcp Primary Care Provider Unavailabl e Reason for Referral * Outpatient (Routine) - Authorized Specialty Diagnoses / Procedures Referred By Te eid Referred To Contact Dermatology Diagnoses Tumor Skin Uncertain Behavior Procedures [employer] Karrie Bowen M.D. [address] [place] [phone] Phone: tel: fax: [facility] Referral ID Status Reason Start Date Expiration Date V isits Requested Visits Authorized [id number] Authorized 10/12/2024 01/12/2026 1 1 Reason for Visit * Appointment Request (Routine) - Closed Specialty Diagnoses / Procedures Referred By Te eid Referred To Contact Dermatology Diagnoses Lesion Skin Nose Referral ID Status Reason Start Date Expiration Date Visits Re quested Visits Authorized [id number] Closed 10/10/2024 01/10/2026 1 1 Encounter Details Date Type Department Care Team (Latest Contact Info) Description 10/12/2024 2:40 PM CDT Comprehensive Visit Department of Dermatology in [place], [place] [address] [place] [phone] Rodrigo Driver M.D. [address] [place] [phone] Tumor Skin Uncertain Behavior (Primary Dx); Screening Examination Skin Cancer Discharge Disposition: Home or Self Care Social History Tobacco Use Types Packs/Day Years Used Date Smoking Tobacco: Never Smokeless Tobacco: Never Alcohol Use Standard Drinks/Week Comments Yes 1 (1 standard drink = 0.6 oz pur e alcohol) [facility] Utilities Answer Date Recorded In the past 12 months has e [employer], [employer], oil, or water [employer] threatened to shut off services in your [...] How often do you attend chur or sikhism services? 1 to 4 times per year 07/08/2022 Do you belong to any clubs o r organizations such as evangelical groups, unions, fraternal or athletic groups, or [...] and heating? Not hard at all 07/08/2022 [facility] - Occupational Stress Questionnaire Answer Date Recorded [...] Answer Date Recorded Employment status Unemployed/not in th e paid workforce but seeking employment 07/19/2023 Housing Stability Answer Date Recorded What is your living situation today? I have a [facility] place to live 07/19/2023 Education Answer Date Recorded What is the highest level of school you have completed or the highest degree you have received? 12th grade 07/08/2022 Comments Unknown Sex and Gender Information Value Date Recorded Sex Assigned at Female 07/08/2022 2:29 PM TIRE ADJUSTER Legal Sex Female 3:08 PM TIRE ADJUSTER Gender Identity Female 07/08/2022 2:29 PM TIRE ADJUSTER Sexual Orientation Straight 07/08/2022 2: 29 PM TIRE ADJUSTER documented as of this encounter Patient Instructions * Patient Instructions* Gayathri Tenorio R.N. - 10/12/2024 2:40 PM CDT ~Keep pressure bandage on for 24 hours. Around 3:30 PM tomorrow, please take bandage off. If bandage comes off early, you can start wound cares early. ~Wash the area (right nose) twice a day with soap and water then apply Vaseline and a Band-Aid if it will stay in place or re-apply Vaseline when needed if the Band-Aid does not stay on. ~Keep area of out any submergible water. Shower is fine after 24 hours. ~No vigorous activities that can increase your blood pressure for 24-48 hours as this can increase risk of bleeding. ~Please apply pressure to area if bleeding for 40 minutes. If bleeding does not stop, please seek medical attention. documented in this encounter Consult Notes * Rodrigo Driver M.D. - 10/12/2024 2:40 PM CDT Correspondence To: Rodrigo Driver M.D. Referring provider: No ref. provider found Supervising business intelligence consultant, Dr. Sisi Magaña , supervised the visit. SUBJECTIVE CHIEF COMPLAINT/REASON FOR VISIT Nasal lesion HISTORY OF PRESENT ILLNESS Nuzhat Ballard is a 34 y.o. female who has been referred by No ref. provider found on 10/12/24 for the above chief complaint. They have no history of skin cancer. No significant family history of family members developing skin cancers at a young age. They have one spot(s) that they are worried about today that has been there for around 3 weeks in his rapidly growing. She does not note any pain, but rather pruritus. REVIEW OF SYSTEMS Denies history of any other rash or lesion MEDICAL/SURGICAL HISTORY Reviewed OBJECTIVE PHYSICAL EXAMINATION General: Well appearing female in no acute distress. Alert and Oriented. Skin: I examined the face. On the right nasal ala, there is a shiny, pearly papule, with rolled borders and prominent telangiectasias, measuring 1 x 1.1 cm On the left shoulder, there are multiple benign ABCDE nevi ASSESSMENT / PLAN # Skin tumor of uncertain behavior, right nasal ala Differential dx: BCC Size: 1.1 x 1 Photographs obtained. Shave biopsy performed. CONSENT Discussed the risks, benefits, alternatives, and the necessity of other members of the healthcare team participating in the procedure. All questions answered and consent given. PROCEDURAL PAUSE Prior to the procedure, final verification of the patient identity and correct marked surgical sitewas performed. SHAVE BIOPSY PROCEDURE We explained the potential diagnosis and recommended that we obtain a biopsy. The risks and benefits of the procedure were discussed, and the patient consented to these procedures. Using 1% lidocainewith epinephrine for local anesthesia, a shave biopsy was obtained from aforementioned location above. Biopsy submitted to Dermatopathology for H&E. Special stains will be performed as indicated.The bleeding was well controlled with application of aluminum chloride. Dressing was applied, and wound care instructions were explained. Biopsy results and any further recommendations will be communicated to the patient by letter. 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 Patient otherwise has no palmar pits or history of any odontogenic cysts. She has no significant history of skin cancer. No concern for Gorlin syndrome. That has not a strong association of skin cancer development in her prior diagnosis of 2q deletion. Sun protection and sun avoidance were reviewed with the patient. The warning signs and symptoms of skin cancer and the proper use of sunscreens were reviewed. My recommendation is using SPF >30, with frequent applications every 2 hours. Follow-up: For skin check Orders Placed This Encounter [employer] [place] Contact Numbers: [facility] page [[phone]] [facility] page [[phone]] [facility] page [[phone]] Clinic call [[phone]] [place] Contact Numbers: [facility] page [[phone]] [facility] [place] page [[phone] or [phone]] [facility] page [[phone]] [facility] page [[phone]] [facility] page [[phone]] [facility] page [[phone]] Has patient consent ([id number]) been obtained/recorded?: Yes Areas/Protocols to be Photographed: right nasal ala Region: [place] Region [[id number]] Image Type: Still Images Ordering Provider Name: RODRIGO DRIVER [[id number]] Ordering Provider Specialty: Dermatology All questions answered. Rodrigo Driver PGY-4 Dermatology Resident Cosigned by Sisi Carlson M.B.B.S. at 10/12/2024 3:40 PM CDT Associated attestation - Sisi Carlson M.B.B.S. - 10/12/2024 3:40 PM CDT I saw and evaluated the patient, participating in the zhou portions of the service. I reviewed the resident???s note. I agree with the resident???s findings and plan. I was present for the zhou/critical portion and immediately available for the entire procedure. documented in this encounter Plan of Treatment Upcoming Encounters Date Type Department Care Team (Late st Contact Info) Description 12/21/2024 2:30 PM CDT Office Visit Division of Plastic Surgery in [place], [place] 200 [place] [phone] Layla Lara APRN, C.N.P., D.N.P. [address] [place] [phone] 02/10/2025 10:30 AM CDT Clinical Communication Virtual Review in [place], [place] [address] [place] [phone] 02/14/2025 11:15 AM CDT Office Visit Department of Dermatology in [place], [place] [address] [place] [phone] Casper Avila M.D. [address] [place] [phone] Scheduled Orders Name Type Priority Associated Diagnoses Orde r Schedule [employer] Procedures Routine Tumor Skin Uncertain Behavior Ordered: 10/12/2024 documented as of this encounter Procedures Procedure Name Priority Date/Time Associated Diagnosis Comments DERMATOPATHOLOGY Routine 10/12/2024 3:15 PM CDT Tumor Skin Uncertain Behavior documented in this encounter Results * Dermatopathology (10/12/2024 3:15 PM CDT) 10/17/2024 10:24 AM T LYNETTE Participated in the Interpretation Coco Dunbar M.D. -Dermatopathology Fellow 10/17/2024 10:24 AM [facility] Report electronically signed by Amna Bolanos M.D. 10/17/2024 10:24 AM [facility] Gross Description Received in formalin labeled with the patient's name, medical record number, and right ala nasi is a 0.9 x 0.8 x 0.1 cm pale-catalan skinshave biopsy. There is a 0.8 x 0.7 cm catalan-red, raised, firm, crusted, erythematous lesion with irregular borders eccentrically located onthe skin surface. Specimen is bisected longitudinally and submitted entirely in cassette A1. Grossed by MARKUS. 10/17/2024 10:24 AM CDT PDRM Interpretation FINAL DIAGNOSIS A. 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 10/17/2024 10:24 AM CDT PDRM Skin (Right Ala Nasi) 10/12/2024 3:15 PM CDT us Rodrigo Driver M.D. LAB PATH DERM ORDERABLES Fi nal Result Performing Organization Address City/State/[facility] Co de Phone Number [facility] [place] 200 [place] [address], [facility] PDRM [address] [place] [phone] documented in this encounter Visit Diagnoses Diagnosis Tumor Skin Uncertain Behavior- Primary Screening Examination Skin Cancer documented in this encounter Care Teams Blind Slat Stapling Machine Operator Relationship Specialty Start Date End Date Elsewhere, Pcp PCP - General Family Medicine 05/29/17 documented as of this encounter
--- OUTSIDE RECORDS SUMMARY | 2024-10-26 | XMS_ITS | Encounter Summary ---
Author Organization [facility] Address [address] [place] [address] Care Team Providers Care Drug Department Worker Name Role Phone Elsewhere, Pcp Primary Care Provider Unavailabl e Encounter Details Date Type Department Care Team (Late st Contact Info) Description 10/26/2024 Ancillary Procedure Department of Dermatology Social History Tobacco Use Types Packs/Day Years Used Date Smoking Tobacco: Never Smokeless Tobacco: Never Alcohol Use Standard Drinks/Week Comments Yes 1 (1 standard drink = 0.6 oz pur e alcohol) [facility] Utilities Answer Date Recorded In the past 12 months has e electric, gas, oil, or water [employer] threatened to shut off services in your [...] often do you attend chur ch or alevism services? 1 to 4 times per year 07/08/2022 Do you belong to any clubs o r organizations such as catholic groups, unions, fraternal or athletic groups, or [...] and heating? Not hard at all 07/08/2022 [facility] - Occupational [...] your living situation today? I have a [facility] place to live 07/19/2023 Education Answer Date Recorded What is the highest level of school you have completed or the highest degree you have received? 12th grade 07/08/2022 Comments Unknown Sex and Gender Information Value Date Recorded Sex Assigned at Female 07/08/2022 2:29 PM LEAD WAREHOUSE ASSOCIATE Legal Sex Female 3:08 PM LEAD WAREHOUSE ASSOCIATE Gender Identity Female 07/08/2022 2:29 PM LEAD WAREHOUSE ASSOCIATE Sexual Orientation Straight 07/08/2022 2: 29 PM LEAD WAREHOUSE ASSOCIATE documented as of this encounter Plan of Treatment Upcoming Encounters Date Type Department Care Team (Late st Contact Info) Description 12/21/2024 2:30 PM CDT Office Visit Division of Plastic Surgery in [place], [place] [address] [place] [phone] Layla Lara APRN, C.N.P., D.N.P. [address] [place] [phone] 02/10/2025 10:30 AM CDT Clinical Communication Virtual Review in [place], [place] [address] [place] [phone] 02/14/2025 11:15 AM CDT Office Visit Department of Dermatology in [place], [place] [address] [place] [phone] Casper Avila M.D. [address] [place] [phone] documented as of this encounter Goals Goal Patient Goal Type Associated Problems Recent Progress Patient-Stated? Author Autogenera pauline Goal Care Plan Autogenerated Problem No Kari Llamas RSiri documented as of this encounter Procedures Procedure Name Priority Date/Time Associated Diagnosis Comments DERMATOLOGY IMAGE EXAM Routine 10/26/2024 12:00 AM CDT documented in this encounter Results * nose, right ala 24 Mohs micrographic surgery-Dermatology Image Exam (10/26/2024 12:00 AM CDT) Narrative [facility] - 10/26/2024 12:47 PM CDT This order has been created and auto-finalized to support the import of images acquired without order. The clinical documentation to support these images can be found on the encounter that produced images. us Provider Not In System IMG NON RAD IMAGING PROCE DURES Final Result [facility] NA documented in this encounter Visit Diagnoses Not on filedocumented in this encounter Additional Health Concerns Active Problems Noted Date Diagnosed Date Autogenerated Problem 10/26/2024 documented as of this encounter Care Teams Drug Department Worker Relationship Specialty Start Date End Date Elsewhere, Pcp PCP - General Family Medicine 05/29/17 documented as of this encounter
--- OUTSIDE RECORDS SUMMARY | 2024-10-26 08:00 | XMS_ITS | Encounter Summary ---
Author Organization [facility] Address [address] [place] [id number] Care Team Providers Care Road Cleaner Name Role Phone Elsewhere, Pcp Primary Care Provider Unavailabl e Reason for Referral * Outpatient (Routine) - Authorized Specialty Diagnoses / Procedures Referred By Contac t Referred To Contact Dermatology Casper Avila M.D. [address] [place] [phone] Phone: tel: fax: [facility] Referral ID Status Reason Start Date Expiration Date V isits Requested Visits Authorized [id number] Authorized 10/26/2024 04/27/2026 1 1 Scheduling Instructions Please schedule with Austin sometime in February Reason for Visit * Outpatient (Routine) - Closed Specialty Diagnoses / Procedures Referred By Contac t Referred To Contact Dermatology Diagnoses Malignant Neoplasm Of Nose Squamous Cell Carcinoma Procedures [facility] 1-4 sites Rodrigo Driver M.D. [address] [place] [phone] Phone: tel: fax: [facility] Referral ID Status Reason Start Date Expiration Date Visits Re quested Visits Authorized [id number] Closed 10/17/2024 01/17/2026 1 1 Encounter Details Date Type Department Care Team ([facility] st Contact Info) Description 10/26/2024 8:00 AM CDT Procedure visit Department of Dermatology in [place], [place] 200 [place] [address] Casper Avila M.D. 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 1 to 4 times per year 07/08/2022 Do you belong to any clubs o r organizations such as latter day groups, unions, fraternal or athletic groups, or [...] and heating? Not hard at all 07/08/2022 [facility] - [...] your living situation today? I have a [place] place to live 07/19/2023 Education Answer Date Recorded What is the highest level of school you have completed or the highest degree you have received? 12th grade 07/08/2022 Comments Unknown Sex and Gender Information Value Date Recorded Sex Assigned at Female 07/08/2022 2:29 PM DIRECTOR BUSINESS TRAVEL Legal Sex Female 3:08 PM DIRECTOR BUSINESS TRAVEL Gender Identity Female 07/08/2022 2:29 PM DIRECTOR BUSINESS TRAVEL Sexual Orientation Straight 07/08/2022 2: 29 PM DIRECTOR BUSINESS TRAVEL documented as of this encounter Last Filed Vital Signs Vital Sign Reading Time Taken Comments Blood Pressure 129/85 10/26/2024 7:36 AM CDT Pulse 79 10/26/2024 7:36 AM CDT Temperature - - Respiratory Rate - - Oxygen Saturation - - Inhaled Oxygen Concentration - - Weight - - Height - - Body Mass Index - - documented in this encounter Patient Instructions * Patient Instructions* Amanda Khalil RJairN. - 10/26/2024 8:00 AM CDT documented in this encounter Procedure Notes * Casper Avila M.D. - 10/26/2024 8:00 AM CDT PREOP INDICATION: REMOVAL. Date of Surgery: 10/26/2024 Surgeon: Dr. Casper Avila M.D. Tower Equipment Installer: Dr. Gar Location: [facility] Floor:16 Room:[facility] Visit Type: Outpatient PostOp Diagnosis: Squamous cell carcinoma, grade 1 Anatomic Location: Right nasal ala/medial cheek Preoperative size: 0.8 x 0.9 cm [facility] number: 24, 26 Indication(s) for Mohs Micrographic Surgery: anatomic location where tissue conservation is critical Procedure(s): Mohs micrographic surgery with referred closure. Procedural pause conducted to verify: correct patient identity, procedure to be performed and as applicable, correct side and site, correct patient position, and availability of implants, special equipment or special requirements. INFORMED CONSENT Discussed the risks, benefits, alternatives, and the necessity of other members of the healthcare team participating in the procedure. All questions answered and consent given. PATIENT EDUCATION Ready to learn, no apparent learning barriers were identified; learning preferences include listening. Explained diagnosis and treatment plan; patient expressed understanding of the content. Preoperative medications: None The anesthesia used was 1% lidocaine and 0.25% bupivacaine with 1:200,000 epinephrine. The skin was prepped in a sterile fashion with Hibiclens. Histologic tumor-free margins were obtained in 2 stages (2/ blocks) by standard Mohs micrographic techniques with the Mohs surgeon performing both the surgery and pathology. The final defect depth was down to level of: levator labii superioris alaque nasi . Postoperative size: 1.3 x 0.9 cm. The patient was transferred to the care of Dr. Mueller for wound closure. Estimated blood loss: Minimal. Complications: None. Wound care: Routine Postoperative medications: None documented in this encounter Consult Notes * Casper Avila M.D. - 10/26/2024 8:00 AM CDT SUBJECTIVE CHIEF COMPLAINT/REASON FOR VISIT Biopsy-proven squamous cell carcinoma HISTORY OF PRESENT ILLNESS Nuzhat Ballard is a pleasant 34 y.o. female who is seen in consultation at the request of Rodrigo Driver M.D. for biopsy-proven squamous cell carcinoma involving the right ala. She is accompanied today by her mother. 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 She lives in a detention. She tolerated the biopsy on her nose quite well. There is no known family history of early-onset colon cancer or sebaceous neoplasms. OBJECTIVE PHYSICAL EXAMINATION General: Awake, alert, in no acute distress, and with appropriate affect. Skin: Examination of the head neck is performed. On the right lateral ala abutting the malar cheek is a 0.9 x 1.3 cm hyperkeratotic nodule. There was no palpable adenopathy in the submental, submandibular, preauricular, or cervical regions. There are no other skin lesions of concern in the areas examined. ASSESSMENT / PLAN #1 Biopsy-proven squamous cell carcinoma, right nasal ala We had an in-depth discussion with the patient and her mother regarding the diagnosis. It is relatively uncommon for this type of skin cancer and the patient of this age. We reviewed with them the possibility of an associated genodermatosis. There is no family history to support this. We will continue to monitor closely. We outlined the goals of care for the day with the primary goal of removing the skin cancer and then we will focus on the reconstruction. She in her mother agreed. We are able to achieve negative histologic margins using Mohs surgery for the squamous cell carcinoma. There wasdeep extension at the base of the defect into muscle. Although she was able to tolerate the Mohs adela bruce, due to patient discomfort there were concerns about doing a more extensive reconstruction. Weshould these concerns with the patient and her family and we all agreed to defer reconstruction to our colleagues in Plastic Surgery. Dr. Mueller was gracious enough to add her to his calendar today for evaluation and plan to reconstruction under general surgery. Going forward we had a discussion about the importance of close surveillance. I want to see her back in approximately 4 months and we will continue on this julito for least 2 years. The tumor was 1.5 cm in diameter, well-differentiated, no perineural or lymphovascular invasion was identified. The notable risk factor was invasion intomuscle, making this a [facility] T2a tumor. documented in this encounter Plan of Treatment Upcoming Encounters Date Type Department Care Team (Late st Contact Info) Description 12/21/2024 2:30 PM CDT Office Visit Division of Plastic Surgery in [place], [place] 200 [place] [address] Layla Lara APRN, C.N.P., D.N.P. [address] [place] [address] 02/10/2025 10:30 AM CDT Clinical Communication Virtual Review in [place], [place] 200 [place] [phone] 02/14/2025 11:15 AM CDT Office Visit Department of Dermatology in [place], [place] [address] [place] [phone] Casper Avila M.D. [address] [place] [phone] Scheduled Referrals Name Type Priority Associated Diagnoses Order Schedule Dermatology office visit (clinic) Outpatient Referral Routine Expected: 02/28/2025 (Approximate), Expires: 01/26/2026 documented as of this encounter Goals Goal Patient Goal Type Associated Problems Recent Progress Patient-Stated? Author Autogenera pauline Goal Care Plan Autogenerated Problem No Kari Llamas T, R.N. documented as of this encounter Visit Diagnoses Diagnosis Malignant Neoplasm Of Nose Squamous Cell Carcinoma documented in this encounter Administered Medications Inactive Administered Medications - up to 3 most recent administrations Medication Order MAR Action Action Date Dose Rate Site TNFnjrdfozl-angesjnsv-ZRSFVSVsvmf 0.25%-1%-1:200,000 injection 2-25 mL 2-25 mL, injection, As needed, may repeat if the patient complains of pain/discomfort at the site up to 50 mL for entire procedure, Starting on Thu10/26/24 at 0735, For 1 dayIndications:Malignant Neoplasm Of Nose Squamous Cell Carcinoma Given 10/26/2024 8:35 AM CDT 4 mL Other lidocaine-EPINEPHrine 1%-1:200,000 injection 2-50 mL (Xylocaine w/epi) 2-50 mL, injection, As needed, may repeat if the patient complains of pain/discomfort at the site up to 50 mL for entire procedure, Starting on Thu10/26/24 at 0735, For 1 dayIndications:Malignant Neoplasm Of Nose Squamous Cell Carcinoma Given 10/26/2024 10:05 AM CDT 4 mL Othe r Given 10/26/2024 8:35 AM CDT 4 mL Ot her lidocaine-sodium bicarbonate (buffered) 0.9%-0.84% injection 0-10 mL 0-10 mL, infiltration, Once, On Thu10/26/24 at 0800, For 1 dose, Final lidocaine concentration is 0.9% (9 mg/mL) Given 10/26/2024 8:34 AM CDT 4 mL Other documented in this encounter Additional Health Concerns Active Problems Noted Date Diagnosed Date Autogenerated Problem 10/26/2024 documented as of this encounter Care Teams Road Cleaner Relationship Specialty Start Date End Date Elsewhere, Pcp PCP - General Family Medicine 05/29/17 documented as of this encounter
--- OUTSIDE RECORDS SUMMARY | 2024-10-26 11:30 | XMS_ITS | Encounter Summary ---
Author Organization [facility] Address [address] [place] [phone] Care Team Providers Care Rebar Bender Name Role Phone Elsewhere, Pcp Primary Care Provider Unavailabl e Reason for Referral * Outpatient (Routine) - Closed Specialty Diagnoses / Procedures Referred By Te t Referred To Contact Plastic Surgery Lenora Mueller M.D., D.D.S. [address] [place] [address] Phone: tel: fax: [facility] Referral ID Status Reason Start Date Expiration Date Visits Re quested Visits Authorized [id number] Closed 10/26/2024 04/27/2026 1 1 Scheduling Instructions With Layla Reason for Visit * Appointment Request (Routine) - Closed Specialty Diagnoses / Procedures Referred By Te t Referred To Contact Aesthetic Medicine and Surgery Referral ID Status Reason Start Date Expiration Date Visits Re quested Visits Authorized [id number] Closed 10/26/2024 01/26/2026 1 1 Encounter Details Date Type Department Care Team (Latest Contact Info) Description 10/26/2024 11:30 AM CDT Comprehensive [facility] in [place], [place] [address] [place] [address] Lenora Mueller M.D., D.D.S. 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 Not hard at all 07/08/2022 [facility] - Occupational [...] your living situation today? [facility] 07/19/2023 Education Answer Date Recorded What is the highest level of school you have completed or the highest degree you have received? 12th grade 07/08/2022 Comments Unknown Sex and Gender Information Value Date Recorded Sex Assigned at Female 07/08/2022 2:29 PM PUBLICATIONS SALES REPRESENTATIVE Legal Sex Female 3:08 PM PUBLICATIONS SALES REPRESENTATIVE Gender Identity Female 07/08/2022 2:29 PM PUBLICATIONS SALES REPRESENTATIVE Sexual Orientation Straight 07/08/2022 2: 29 PM PUBLICATIONS SALES REPRESENTATIVE documented as of this encounter Consult Notes * Jessica Kendall M.D., Ph.D. 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 Avila today in Mohs clinic. She was sent to us for reconstructive options. 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 She is here today accompanied by her parents. She is extremelyactive and loves soccer and track and field. 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 She does have a history of a provoked DVT in the setting of prior hormone neuro control for heavy periods. She was seen by the thrombophilia Clinic and found no genetic causes for her blood clot. She is not on blood thinners currently. She is a nonsmoker. On evaluation she has been approximately 1-1/2 x 2 cm full-thickness defect just lateral to the right ala and barely encompassing the malar alar ridge. Like this goes down to bone. There is possible cartilaginous involvement but likely very minimal considering it is at the end of the alar rim. Assessment and plan - Squamous cell carcinoma of the right alar region excise by Dr. Avila in Mohs Clinic on 10/26/2024 She will be listed for Mohs reconstruction with local tissue rearrangement on Thursday. This will be done under general anesthesia. We discussed that this could be a 1-2 stage procedure depending on how things look after the 1st stage. She will have sutures that will need to be removed in approximately 5 days. She should with hold on any heavy activity like soccer or track and field for a few weeks. We discussed scar care briefly. Her parents will be involved in her aftercare. Photos are up-to-date. She was seen and evaluated with Dr. Mueller. documented in this encounter Plan of Treatment Upcoming Encounters Date Type Department Care Team (Late st Contact Info) Description 12/21/2024 2:30 PM CDT Office Visit Division of Plastic Surgery in [address] [phone] Layla Lara APRN, C.N.P., D.N.P. [address] [place] [phone] 02/10/2025 10:30 AM CDT Clinical Communication Virtual Review in [place], [place] 200 [place] [address] 02/14/2025 11:15 AM CDT Office Visit Department of Dermatology in [address] [phone] Casper Avila M.D. [address] [place] [phone] Scheduled Referrals Name Type Priority Associated Diagnoses Orde r Schedule Plastic Surgery office visit (clinic) Outpatient Referral Routine Expected: 11/04/2024, Expires: 01/26/2026 documented as of this encounter Goals Goal Patient Goal Type Associated Problems Recent Progress Patient-Stated? Author Autogenera pauline Goal Care Plan Autogenerated Problem No Kari Llamas T, R.N. documented as of this encounter Visit Diagnoses Diagnosis Malignant Neoplasm Of Nose Squamous Cell Carcinoma- Primary documented in this encounter Additional Health Concerns Active Problems Noted Date Diagnosed Date Autogenerated Problem 10/26/2024 documented as of this encounter Care Teams Rebar Bender Relationship Specialty Start Date End Date Elsewhere, Pcp PCP - General Family Medicine 05/29/17 documented as of this encounter
--- OUTSIDE RECORDS SUMMARY | 2024-10-31 | XMS_ITS | Encounter Summary ---
Author Organization [facility] Address [address] [place] [address] Care Team Providers Care Correspondence Review Clerk Name Role Phone Elsewhere, Pcp Primary Care Provider Unavailabl e Encounter Details Date Type Department Care Team (Late st Contact Info) Description 10/31/2024 Ancillary Procedure Department of Plastic and Reconstructive Surgery Social History Tobacco Use Types Packs/Day Years Used Date Smoking Tobacco: Never Smokeless Tobacco: Never Alcohol Use Standard Drinks/Week Comments Yes 1 (1 standard drink = 0.6 oz pur e alcohol) [facility] Utilities Answer Date Recorded In the past 12 months has e [employer], gas, oil, or water [employer] threatened to shut off services in your [...] often do you attend chur ch or mu-ism services? 1 to 4 times per year 07/08/2022 Do you belong to any clubs o r organizations such as restorationist groups, unions, fraternal or athletic groups, or [...] and heating? Not hard at all 07/08/2022 [facility] - [...] your living situation today? I have a [facility] place to live 07/19/2023 Education Answer Date Recorded What is the highest level of school you have completed or the highest degree you have received? 12th grade 07/08/2022 Comments No Sex and Gender Information Value Date Recorded Sex Assigned at Female 07/08/2022 2:29 PM NEWSPAPER VENDOR Legal Sex Female 3:08 PM NEWSPAPER VENDOR Gender Identity Female 07/08/2022 2:29 PM NEWSPAPER VENDOR Sexual Orientation Straight 07/08/2022 2: 29 PM NEWSPAPER VENDOR documented as of this encounter Plan of Treatment Upcoming Encounters Date Type Department Care Team (Late st Contact Info) Description 12/21/2024 2:30 PM CDT Office Visit Division of Plastic Surgery in [place], [place] [address] [place] [phone] Layla Lara APRN, C.N.P., D.N.P. [address] [place] [phone] 02/10/2025 10:30 AM CDT Clinical Communication Virtual Review in [place], [place] [address] [place] [address] 02/14/2025 11:15 AM CDT Office Visit Department of Dermatology in [place], [place] [address] [place] [phone] Casper Avila M.D. [address] [place] [address] documented as of this encounter Goals Goal Patient Goal Type Associated Problems Recent Progress Patient-Stated? Author Autogenera pauline Goal Care Plan Autogenerated Problem No Kari Llamas, RJairN. documented as of this encounter Procedures Procedure Name Priority Date/Time Associated Diagnosis Comments PLASTIC AND RECON SURGERY IMAGE EXAM Routine 10/31/2024 12:00 AM CDT documented in this encounter Results * Face-Plastic And Recon Surgery Image Exam (10/31/2024 12:00 AM CDT) Narrative [facility] - 11/01/2024 9:35 AM CDT This order has been created [...] documented as of this encounter Care Teams Correspondence Review Clerk Relationship Specialty Start Date End Date Elsewhere, Pcp PCP - General Family Medicine 05/29/17 documented as of this encounter
--- OUTSIDE RECORDS SUMMARY | 2024-10-31 07:57 | XMS_ITS | Encounter Summary ---
Author Organization [facility] Address [address] [place] [phone] Care Team Providers Care Superintendent Radio Communications Name Role Phone Elsewhere, Pcp Primary Care Provider Unavailabl e Encounter Details Date Type Department Care Team (Latest Contact Info) Description 10/31/2024 7:57 AM CDT - 10/31/2024 3:05 PM CDT Hospital Encounter [facility] OR [address] [place] [phone] Lenora Mueller M.D., D.D.S. [address] [place] [phone] Malignant Neoplasm Of Nose Squamous Cell Carcinoma Discharge Disposition: Home or Self Care Social History Tobacco Use Types Packs/Day Years Used Date Smoking Tobacco: Never Smokeless Tobacco: Never Alcohol Use Standard Drinks/Week Comments Yes 1 (1 standard drink = 0.6 oz pur e alcohol) [facility] Utilities Answer Date Recorded In [...] How often do you attend chur or sikh services? 1 to 4 times per year [...] and heating? Not hard at all 07/08/2022 [facility] of Occupat ional Health - Occupational Stress [...] your living situation today? I have a [facility] place to live 07/19/2023 Education Answer Date Recorded What is the highest level of school you have completed or the highest degree you have received? 12th grade 07/08/2022 Comments No Sex and Gender Information Value Date Recorded Sex Assigned at Female 07/08/2022 2:29 PM BARREL CENTERER Legal Sex Female 3:08 PM BARREL CENTERER Gender Identity Female 07/08/2022 2:29 PM BARREL CENTERER Sexual Orientation Straight 07/08/2022 2: 29 PM BARREL CENTERER documented as of this encounter Last Filed Vital Signs Vital Sign Reading Time Taken Comments Blood Pressure 116/82 10/31/2024 2:30 PM CDT Pulse 79 10/31/2024 2:50 PM CDT Temperature 36.8 C (98.2 F) 10/31/2024 1:30 PM CDT Respiratory Rate 13 10/31/2024 2:35 PM CDT Oxygen Saturation 96% 10/31/2024 2:50 PM CDT Inhaled Oxygen Concentration - - Weight 83.2 kg (183 lb 6.8 oz) 10/31/2024 8:22 A M CDT Height 162.6 cm (5' 4) 10/31/2024 8:22 AM CDT Body Mass Index 31.48 10/31/2024 8:22 AM CDT documented in this encounter Medications at Time of Discharge acetaminophen (TylenoL) 160 mg/5 mL liquid Take 31.3 mL (1,000 mg total) by mouth every 6 (six) hours as needed for pain. 10/31/2024 albuterol 90 mcg/actuation inhaler Inhale 2 puffs 4 (four) times a day as needed. 03/12/2022 cetirizine (ZyrTEC) 10 mg tablet Take 1 tablet by mouth daily as needed. 08/12/2013 FLUoxetine (PROzac) 20 mg/5 mL (4 mg/mL) solution Take 10 mg by mouth. 03/12/2022 ibuprofen 50 mg/1.25 mL drops Take 15 mL (600 mg total) by mouth every 6 (six) hours as needed for pain. 10/31/2024 multivitamin tablet Take 1 tablet by mouth daily. 03/11/2024 psyllium (KonsyL) powder Take 1 tsp by mouth as needed. Mix 1 tsp in liquid then take by mouth once daily. No sugar metamucil, orange flavor 03/11/2024 amoxicillin-pot clavulanate (Augmentin) 250-62.5 mg/5 mL suspensionIndicat ions:Malignant Neoplasm Of Nose Squamous Cell Carcinoma Take 10 mL (500 mg total) by mouth 2 (two) times a day for 3 days. Shake Well. 150 mL 10/31/2024 3:41 PM CDT 10/31/2024 mupirocin (Bactroban) 2 % ointment Apply 1 Application topically 2 (two) times a day for 7 days. Apply to right face incision 22 g 2 10/31/2024 3:41 PM CDT 10/31/2024 documented as of this encounter OR Notes * Op Note - Bill Rosen M.B.B.S., M.S. - 10/31/2024 11:42 AM CDT Pre-op Diagnosis Malignant Neoplasm Of Nose Squamous Cell Carcinoma Post-op Diagnosis Malignant Neoplasm Of Nose Squamous Cell Carcinoma Procedure Performed: -rhomboid flap transposition for Moh's defect reconstruction. [place] Driver A first aid attendant actively participated and was necessary for one or more of the following: opening, exposure and visualization, maintaining hemostasis, wound closure resulting in its safe and expeditious completion. Findings As expected Complications None Operative Note Narrative The patient was brought to the operating room and placed in the supine position. After induction ofgeneral anesthesia, the patient was prepped and draped in the usual sterile fashion. A surgical pause was performed to confirm the correct patient and procedure. The right nasal defect crosses the border of the right ala and the right cheek. This measured 12 x 14 mm. We designed a rhomboid flap, measured 10 x 20 mm. We injected lidocaine with epinephrine for field block. The incision was made with scalpel, then with electrocautery. We raised the flap along with the levator labii superioris muscle fascia. To advance the flap, we performed 30mm of skin undermining in the caudal and lateral direction. The flap was then transposed and secured using 4-0 PDS, followed by 5-0 Prolene interrupted skin closure. Bactroban ointment was applied over the incision. This concluded the procedure. Evelio Zelaya., M.S. Cosigned by Lenora Mueller M.D., D.D.S. at 11/03/2024 11:13 AM CDT documented in this encounter Plan of Treatment Upcoming Encounters Date Type Department Care Team (Late st Contact Info) Description 12/21/2024 2:30 PM CDT Office Visit Division of Plastic Surgery in [place], [place] [address] [place] [phone] Layla Lara APRN, C.N.P., D.N.P. [address] [place] [phone] 02/10/2025 10:30 AM CDT Clinical Communication Virtual Review in [place], [place] 200 [place] [phone] 02/14/2025 11:15 AM CDT Office Visit Department of Dermatology in [place], [place] [address] [place] [phone] Casper Avila M.D. [address] [place] [phone] documented as of this encounter Goals Goal Patient Goal Type Associated Problems Recent Progress Patient-Stated? Author Autogenera pauline Goal Care Plan Autogenerated Problem No Kari Llamas RSiir documented as of this encounter Procedures Procedure Name Priority Date/Time Associated Diagnosis Comments RECONSTRUCTION MOHS DEFECT 10/31/2024 10:19 AM CDT Malignant Neoplasm Of Nose Squamous Cell Carcinoma Case Notes LINE ANALYST 759 documented in this encounter Visit Diagnoses Diagnosis Malignant Neoplasm Of Nose Squamous Cell Carcinoma- Primary Malignant Neoplasm Of Nose Squamous Cell Carcinoma documented in this encounter Admitting Diagnoses Diagnosis Malignant Neoplasm Of Nose Squamous Cell Carcinoma documented in this encounter Administered Medications Inactive Administered Medications - up to 3 most recent administrations Medication Order MAR Action Action Date Dose Rate Site acetaminophen liquid 1,000 mg (TylenoL) 1,000 mg, oral, Every 6 hours PRN, mild pain or score 1-3 of 10, Starting on Thu10/31/24 at 1306 chlorhexidine 0.12 % mouthwash 15 mL (Peridex) 15 mL, swish & spit, Once as needed, Chlorhexidine mouthwash (Peridex) should be given if patient did not complete oral care, if completion is greater than 4 hours prior to surgery or procedure start time and they do not have the opportunity to brush their teeth now (or at this time)., Starting on Thu10/31/24 at 0922, For 1 dose, Pre-Op, Instruct patient to swish entire content of Chlorhexidine 0.12% mouthwash (Peridex) 15 mL cup for 30 seconds, then spit, swish & spit. If patient is at risk for aspiration, apply Chlorhexidine 0.12% mouthwash to a swab and gently swab the patient's teeth and gums. Ensure swab is not oversaturated. gentamicin-polymixin B 20 mcg/mL-500 units/mL irrigation bottle (DABS Modified Irrigation) irrigation, Once in surgery, OR use only, Starting on Thu10/31/24 at 0945, For 1 dose, Intra-Op, *IRRIGATION ONLY* ibuprofen suspension 600 mg 600 mg, oral, Every 6 hours PRN, mild pain or score 1-3 of 10, moderate pain or score 4-6 of 10, Starting on Thu10/31/24 at 1306 metoprolol tablet 12.5 mg (Lopressor) 12.5 mg, oral, Once as needed, if patient did not take their last scheduled dose of beta niesha prior to arrival, Starting on Thu10/31/24 at 0922, For 1 dose, Pre-Op, Do not give if patient does not take scheduled beta blockers, if patient is receiving intravenous vasopressors or inotropes, if heart rate is less than 50 beats per minute, if systolic blood pressure is less than 90 mmHg or if diastolic blood pressure is less than 40 mmHg, or if patient has an allergy to metoprolol. mupirocin 2 % ointment 1 Application (Bactroban) 1 Application, topical, 3 times daily, First dose on Thu10/31/24 at 1400, Intra-OpIndications:Malignan t Neoplasm Of Nose Squamous Cell Carcinoma Given 10/31/2024 12:57 PM CDT 1 Application Other sodium chloride 0.9 % injection 10 mL 10 mL, intravenous, As needed, line care, Starting on Thu10/31/24 at 0922, Pre-Op, Peripheral Intravenous Catheter and Rapid Infusion Catheter, prior to blood sampling, post blood transfusion or post blood sampling sodium chloride 0.9 % injection 3 mL 3 mL, intravenous, As needed, line care, Starting on Thu10/31/24 at 0922, Pre-Op, Prior to and following infusion and between multiple consecutive infusions: sodium chloride 0.9 % injection sodium chloride 0.9 % injection 3 mL 3 mL, intravenous, Every 12 hours scheduled, First dose on Thu10/31/24 at 2100, Pre-Op, Peripheral Intravenous Catheter and Rapid Infusion Catheter, when no infusion to maintain patency tranexamic acid 3 g/75 mL (40 mg/mL) in NaCl 0.9% sterile solution 75 mL 75 mL, topical, Once in surgery, OR use only, Starting on Thu10/31/24 at 0945, For 1 dose, Intra-Op, For topical, irrigation, or infiltration use ONLY documented in this encounter Active and Recently Administered Medications Times are shown in CDT. Scheduled Medication Order 10/29/2024 10/30/2024 10/31/2024 BUPivacaine liposome (PF) 266 mg/20 mL (13.3 mg/mL) injection 20 mL (ExpareL) 20 mL, infiltration, Once, On Thu10/31/24 at 1015, For 1 dose, Intra-Op 1015 (Due) ceFAZolin injection 2,000 mg (Ancef) (COMPLETED) 2,000 mg (rounded from 2,080 mg = 25 mg/kg 83.2 kg Dosing weight), intravenous, Once, On Thu10/31/24 at 1015, For 1 dose, Intra-Op, Administer within 1 hour prior to surgical incision For immediate IV push administration, reconstitute vial per IVAG or package insert instructions. See IVAG for administration guidelines., Drug Monitoring Program: Pharmacist to adjust medication dosing based on indication and drug clearance factors., Indications: Prophylaxis, surgical 1110 (Given - Provid er: Kimber Mcgrath M.D.) lidocaine-EPINEPHrine 1 %-1:100,000 injection 30 mL (Xylocaine w/epi) 30 mL, injection, Once, On Thu10/31/24 at 1015, For 1 dose, Intra-Op 1015 (Due) mupirocin 2 % ointment 1 Application (Bactroban) 1 Application, topical, 3 times daily, First dose on Thu10/31/24 at 1400, Intra-Op 1257 (Given - Provid er: Evelio Valentin., M.S. - Comment: right nose/cheek lesion)1400 (Due) sodium chloride 0.9 % injection 3 mL 3 mL, intravenous, Every 12 hours scheduled, First dose on Thu10/31/24 at 2100, Pre-Op, Peripheral Intravenous Catheter and Rapid Infusion Catheter, when no infusion to maintain patency PRN Medication Order 10/29/2024 10/30/2024 10/31/2024 acetaminophen liquid 1,000 mg (TylenoL) 1,000 mg, oral, Every 6 hours PRN, mild pain or score 1-3 of 10, Starting on Thu10/31/24 at 1306 balanced salt solution ophthalmic irrigation (BSS) (CANCELED) As needed, Starting on Thu10/31/24 at 1259, Intra-Op 1259 (Given - Provid er: Savannah Valentin, M.S.) chlorhexidine 0.12 % mouthwash 15 mL (Peridex) 15 mL, swish & spit, Once as needed, Chlorhexidine mouthwash (Peridex) should be given if patient did not complete oral care, if completion is greater than 4 hours prior to surgery or procedure start time and they do not have the opportunity to brush their teeth now (or at this time)., Starting on Thu10/31/24 at 0922, For 1 dose, Pre-Op, Instruct patient to swish entire content of Chlorhexidine 0.12% mouthwash (Peridex) 15 mL cup for 30 seconds, then spit, swish & spit. If patient is at risk for aspiration, apply Chlorhexidine 0.12% mouthwash to a swab and gently swab the patient's teeth and gums. Ensure swab is not oversaturated. gentamicin-polymixin B 20 mcg/mL-500 units/mL irrigation bottle (DABS Modified Irrigation) irrigation, Once in surgery, OR use only, Starting on Thu10/31/24 at 0945, For 1 dose, Intra-Op, *IRRIGATION ONLY* ibuprofen suspension 600 mg 600 mg, oral, Every 6 hours PRN, mild pain or score 1-3 of 10, moderate pain or score 4-6 of 10, Starting on Thu10/31/24 at 1306 lidocaine-EPINEPHrine 1 %-1:100,000 injection (Xylocaine w/epi) (CANCELED) As needed, Starting on Thu10/31/24 at 1138, Intra-Op 1138 (Given - Provid er: Lenora Mueller M.D., D.D.S.) metoprolol tablet 12.5 mg (Lopressor) 12.5 mg, oral, Once as needed, if patient did not take their last scheduled dose of beta niesha prior to arrival, Starting on Thu10/31/24 at 0922, For 1 dose, Pre-Op, Do not give if patient does not take scheduled beta blockers, if patient is receiving intravenous vasopressors or inotropes, if heart rate is less than 50 beats per minute, if systolic blood pressure is less than 90 mmHg or if diastolic blood pressure is less than 40 mmHg, or if patient has an allergy to metoprolol. sodium chloride 0.9 % injection 10 mL 10 mL, intravenous, As needed, line care, Starting on Thu10/31/24 at 0922, Pre-Op, Peripheral Intravenous Catheter and Rapid Infusion Catheter, prior to blood sampling, post blood transfusion or post blood sampling sodium chloride 0.9 % injection 3 mL 3 mL, intravenous, As needed, line care, Starting on Thu10/31/24 at 0922, Pre-Op, Prior to and following infusion and between multiple consecutive infusions: sodium chloride 0.9 % injection tranexamic acid 3 g/75 mL (40 mg/mL) in NaCl 0.9% sterile solution 75 mL 75 mL, topical, Once in surgery, OR use only, Starting on Thu10/31/24 at 0945, For 1 dose, Intra-Op, For topical, irrigation, or infiltration use ONLY documented in this encounter Additional Health Concerns Active Problems Noted Date Diagnosed Date Autogenerated Problem 10/26/2024 documented as of this encounter Care Teams Superintendent Radio Communications Relationship Specialty Start Date End Date Elsewhere, Pcp PCP - General Family Medicine 05/29/17 documented as of this encounter
--- OUTSIDE RECORDS SUMMARY | 2024-10-31 09:44 | XMS_ITS | Encounter Summary ---
Author Organization [facility] Address [address] [place] [phone] Care Team Providers Care Knitting Machine Fixer Head Name Role Phone Elsewhere, Pcp Primary Care Provider Unavailabl e Encounter Details Date Type Department Care Team (Late st Contact Info) Description 10/31/2024 9:44 AM CDT - 10/31/2024 12:28 PM CDT Surgery [facility] MAIN OR [address] [place] [phone] Lenora Mueller M.D., D.D.S. [address] [place] [phone] RECONSTRUCTION RIGHT CHEEK, NOSE MOHS DEFECT USING LOCAL TISSUE REARRANGEMENT Social History Tobacco Use Types Packs/Day Years Used Date Smoking Tobacco: Never Smokeless Tobacco: Never Alcohol Use Standard Drinks/Week Comments Yes 1 (1 standard drink = 0.6 oz pur e alcohol) [facility] Utilities Answer Date Recorded In the [...] week 07/08/2022 How often do you attend [facility] or hindu services? 1 to 4 times per year 07/08/2022 Do you belong to any clubs o r organizations such as temple groups, unions, fraternal or athletic groups, or [...] and heating? Not hard at all 07/08/2022 [facility] of Occupat ional Health - Occupational Stress [...] your living situation today? I have a [facility] place to live 07/19/2023 Education Answer Date Recorded What is the highest level of school you have completed or the highest degree you have received? 12th grade 07/08/2022 Comments No Sex and Gender Information Value Date Recorded Sex Assigned at Female 07/08/2022 2:29 PM SOFTWARE SUPPORT TECHNICIAN Legal Sex Female 3:08 PM SOFTWARE SUPPORT TECHNICIAN Gender Identity Female 07/08/2022 2:29 PM SOFTWARE SUPPORT TECHNICIAN Sexual Orientation Straight 07/08/2022 2: 29 PM SOFTWARE SUPPORT TECHNICIAN documented as of this encounter Last Filed Vital Signs Vital Sign Reading Time Taken Comments Blood Pressure 99/73 10/31/2024 8:22 AM CDT Pulse 73 10/31/2024 8:22 AM CDT Temperature 36.9 C (98.4 F) 10/31/2024 8:22 AM CDT Respiratory Rate - - Oxygen Saturation 98% 10/31/2024 8:22 AM CDT Inhaled Oxygen Concentration - - Weight [...] -rhomboid flap transposition for Moh's defect reconstruction. Upholstery Tech A senior sales assistant actively participated and was necessary for one [...] Office Visit Division of Plastic Surgery in [place], [place] [address] [place] [phone] Layla Lara APRN, C.N.P., D.N.P. [address] [place] [phone] 02/10/2025 10:30 AM CDT Clinical Communication Virtual Review in [place], [place] 200 [place] [phone] 02/14/2025 11:15 AM CDT Office Visit Department of Dermatology in [place], [place] [address] [place] [phone] Casper Avila M.D. [address] [place] [phone] documented as of this encounter Goals Goal Patient Goal Type Associated Problems Recent Progress Patient-Stated? 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 [...] 1306 balanced salt solution ophthalmic irrigation (BSS) As needed, Starting on Thu10/31/24 at 1259, Intra-Op Given 10/31/2024 12:59 PM CDT 15 mL Bilateral chlorhexidine 0.12 % mouthwash 15 mL (Peridex) [...] 1306 lidocaine-EPINEPHrine 1 %-1:100,000 injection (Xylocaine w/epi) As needed, Starting on Thu10/31/24 at 1138, Intra-Op Given 10/31/2024 11:38 AM CDT 6 mL Nose metoprolol tablet 12.5 mg (Lopressor) 12.5 mg, [...] daily, First dose on Thu10/31/24 at 1400, Intra-OpIndications:Malign ant Neoplasm Of Nose Squamous Cell Carcinoma Given [...] 1400, Intra-Op 1257 (Given - Provid er: Belen ValentinB.SJair, M.S. - Comment: right nose/cheek lesion)1400 (Due) [...] documented as of this encounter Care Teams Knitting Machine Fixer Head Relationship Specialty Start Date End Date Elsewhere, Pcp PCP - General Family Medicine 05/29/17 documented as of this encounter
--- OUTSIDE RECORDS SUMMARY | 2024-10-31 10:41 | XMS_ITS | Encounter Summary ---
Author Organization [facility] Address [address] [place] [id number] Care Team Providers Care Molder Fitting Name Role Phone Elsewhere, Pcp Primary Care Provider Unavailabl e Encounter Details Date Type Department Care Team (Late st Contact Info) Description 10/31/2024 10:41 AM CDT Anesthesia Event RST ROMB MAIN OR [address] [place] [phone] Jc Stallworth M.D. [address] [place] [phone] Anesthesia Record Procedure Summary Procedure Name Responsible Anesthesiologist Anesthesia Start Time Anesthesia Stop Time RECONSTRUCTION RIGHT CHEEK, NOSE MOHS DEFECT USING LOCAL TISSUE REARRANGEMENT (Right) Jc Stallworth M.D. 10/31/24 1041 10/31/24 1339 Events Date Time Event Comment 10/31/2024 1041 An Start Machine/Equipme nt Checked Infection Precautions Followed Procedure/Site Verified NPO Status Verified Supine Standard ASA Monitors Applied 1049 An Induction 1052 An Intubation 1054 Turnover to Proceduralist 1142 Proc Start 1256 Proc Fin 1303 Turnover to ANE Staff 1317 Airway Removal Criteria Met 1317 Extubation/Airway Removed 1320 an stop data 1339 An End I completed my handoff to the receiving staff during which we 1. Identified the patient 2. Identified the responsible provider 3. Reviewed the pertinent medical history 4. Discussed the surgical course 5. Reviewed intra-op anesthesia management and issues during anesthesia 6. Set expectations for post-procedure period 7. Allowed opportunity for questions and acknowledgement of understanding. Meds Name Total fentanyl injection 50 mcg/mL 100 mcg lidocaine 2% (mg) injection 100 mg succinylcholine 20 mg/mL injection 100 m g phenylephrine 100 mcg/mL injection 50 mc g ondansetron 4 mg/2 mL injection 4 mg propofol 10 mg/mL infusion 1,008.8 mg propofol 10 mg/mL injection 200 mg phenylephrine infusion 80 mcg/mL in NaCl 0.9% 250 mL (premix/CNR) 3.17 mg ceFAZolin injection 2,000 mg (Ancef) 2 g dexAMETHasone (Decadron) injection 4 mg/ mL 4 mg remifentaniL 20 mcg/mL in NaCl 0.9% 100 mL infusion (Ultiva) 2.23 mg aprepitant (Aponvie) injection 32 mg/4.4 mL (7.2 mg/mL) 32 mg heparin injection 5,000 Units/mL 5,000 U nits haloperidoL (HaldoL) injection 5 mg/mL 1 mg Lactated Ringers Free Drip 900 mL * Agents No agents on file. * Blood No blood administrations on file. Lines, Drains, and Airways Type Details Placement Removal Wound 10/31/24; 1158; Y; Incision; Nose; Right 10/31/24 1158 by Rosibel Molina, R.NJair Peripheral IV Placement Date: 10/13 03/09; Placement Time: 0934; Catheter Size: 20 G; Orientation: Anterior, Left, Lower, Proximal; Location: Forearm; Site Prep: Chlorhexidine (Preferred); Technique: Anatomical landmarks; Inserted by: fracisco; Insertion Attempts: 1; Removal Date: 10/31/24; Removal Time: 1502; Removal Reason: Completion of therapy 10/31/24 0934 by Darlene Erickson 10/31/24 1502 by Rhonda Marshall RSiri ETT Placement Date: 10/13 03/09; Placement Time: 1052 (created via procedure documentation); Mask Ventilation: Oral/Nasal airway needed; Technique: Video laryngoscopy; Type: Standard ETT; Single Lumen Tube Size: 7 mm; Cuffed: Yes; Location: Oral; Grade View: Grade 1; Insertion Attempts: 1; Placement Verification: Bilateral breath sounds, Positive ETCO2, Symmetrical chest wall movement; Removal Date: 10/31/24; Removal Time: 13110/31/24 1052 by Kimber Mcgrath M.D. 10/31/24 1317 by Kimber Mcgrath M.D. documented in this encounter Social History Tobacco Use Types Packs/Day Years Used Date Smoking Tobacco: Never Smokeless Tobacco: Never Alcohol Use Standard Drinks/Week Comments Yes 1 (1 standard drink = 0.6 oz pur e alcohol) [facility] Utilities Answer Date Recorded In the past 12 months has e [employer], gas, oil, or water [employer] threatened to shut off services in your [...] How often do you attend chur or judaism services? 1 to 4 times per year 07/08/2022 Do you belong to any clubs o r organizations such as pentecostalism groups, unions, fraternal or athletic groups, or [...] and heating? Not hard at all 07/08/2022 [facility] [place] of Occupat ional Health - Occupational Stress [...] your living situation today? I have a [facility] place to live 07/19/2023 Education Answer Date Recorded What is the highest level of school you have completed or the highest degree you have received? 12th grade 07/08/2022 Comments No Sex and Gender Information Value Date Recorded Sex Assigned at Female 07/08/2022 2:29 PM WASH TANK TENDER Legal Sex Female 3:08 PM WASH TANK TENDER Gender Identity Female 07/08/2022 2:29 PM WASH TANK TENDER Sexual Orientation Straight 07/08/2022 2: 29 PM WASH TANK TENDER documented as of this encounter OR Notes * Anesthesia Postprocedure Evaluation - Jc Stallworth M.D. 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 Responsible Provider: Jc Stallworth M.D. Anesthesia Type: general ASA Status: 3 Anesthesia Type: general Last vitals Vitals Value Taken Time BP 110/84 10/31/24 14:15 Temp 36.8 ??C 10/31/24 13:30 Pulse 82 10/31/24 14:15 Resp 19 10/31/24 14:15 SpO2 94 % 10/31/24 14:15 Please reference Vitals flowsheet for most recent vital signs. Anesthesia Post Evaluation Patient Disposition: dismissal Cardiovascular status: hemodynamics (HR & BP) acceptable Respiratory status: patent airway with spontaneous effort Temperature: normothermic Oxygen requirements: room air Level of consciousness: awake Pain score: pain adequately controlled and/or at baseline Post Op nausea/vomiting: none Hydration status: euvolemic Notable Events No notable events documented. * Anesthesia Procedure Notes - Kimber Mcgrath M.D. - 10/31/2024 11:06 AM CDT Associated Order(s): Airway Airway Date/Time: 10/31/2024 10:52 AM Performed by: Kimber Mcgrath M.D. Authorized by: Kimber Mcgrath M.D. Patient location during procedure: OR / Procedure Area PROCEDURE DETAILS: Mask difficulty assessment: oral/nasal airway needed Final airway type: video laryngoscope Laryngeal Manipulation: no Final best view of glottic structures - Cormack/Lehane Score: grade 1 ETT location: oral VL device: glide scope Moran scope blade size: 3 Tube size: 7 ETT distance at teeth/gum: 21 Oral tube type: standard ETT Cuffed: yes Number of attempt to successful placement: 1 Airway confirmation: bilateral breath sounds, positive ETCO2 and bilateral chest rise Other previous techniques attempted: none PRE PROCEDURE DETAILS: Pre evaluation for airway management: procedure Urgency: elective Preoxygenation: bag valve mask SEDATION / ANESTHESIA Anesthesia method: anesthesia POST PROCEDURE DETAILS: Procedure outcome: successful Notable Events: no complications * Anesthesia Preprocedure Evaluation - Jc Stallworth M.D. - 10/31/2024 10:10 AM CDT Preprocedure Anesthesia & H&P Assessment Procedure Summary Date/Time: 10/31/24 0944 Procedure: RECONSTRUCTION RIGHT CHEEK, NOSE MOHS DEFECT USING LOCAL TISSUE REARRANGEMENT, POSSIBLE SKIN GRAFT HARVESTED FROM ANY AVAILABLE LOCATIONS, proceed as indicated. 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 Location: [address] 01 57 / [facility] in [place], [place] Providers: Lenora Mueller M.D., D.D.S. Pertinent components of the patient's history including current problem list, medical history, surgical history, family history, social history, medications and allergies were reviewed. Present illness and pre-op diagnosis were confirmed. The planned surgery / procedure was verified with the patient / legal guardian. 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 OBJECTIVE PHYSICAL EXAMINATION Airway (HEENT) Mallampati: III TM Distance: >3 FB Neck ROM: Full Mouth Opening: >3 cm Cardiovascular Rhythm: Regular Rate: Normal Cardiovascular Assessment: cardiovascular normal Functional Capacity: >4 METS Pulmonary Pulmonary Assessment: Clear and non labored General / Constitutional Constitutional Assessment: Obese General State of Health:: calm Neurological Neurologic Assessment: alert and alert and oriented x 3 Dental Dental Assessment: dentition intact ASSESSMENT / PLAN ANESTHESIA PLAN ASA: 3 Anesthesia Plan: general Patient seen and allergies reviewed, anesthesia plan and risks discussed directly with patient /legal guardian or through an aerographer. The use of blood products not discussed Approval to Proceed: approved for anesthesia documented in this encounter Plan of Treatment Upcoming Encounters Date Type Department Care Team (Late st [facility]) Description 12/21/2024 2:30 PM CDT Office Visit Division of Plastic Surgery in [address] [phone] Layla Lara APRN, C.N.P., D.N.P. [address] [place] [phone] 02/10/2025 10:30 AM CDT Clinical Communication Virtual Review in [address] [phone] 02/14/2025 11:15 AM CDT Office Visit Department of Dermatology in [address] [phone] Casper Avila M.D. [address] [place] [phone] documented as of this encounter Goals Goal Patient Goal Type Associated Problems Recent Progress Patient-Stated? Author Autogenera pauline Goal Care Plan Autogenerated Problem No Kari Llamas T, R.N. documented as of this encounter Procedures Procedure Name Priority Date/Time Associated Diagnosis Comments AIRWAY MANAGEMENT Routine 10/31/2024 10: 52 AM CDT documented in this encounter Results * Airway (10/31/2024 10:52 AM CDT) Narrative Kimber Mcgrath M.D. - 10/31/2024 10:52 AM CDT Kimber Mcgrath M.D. 10/31/2024 11:07 AM Airway Date/Time: 10/31/2024 10:52 AM Performed by: Kimber Mcgrath M.D. Authorized by: Kimber Mcgrath M.D. Patient location during procedure: OR / Procedure Area PROCEDURE DETAILS: Mask difficulty assessment: oral/nasal airway needed Final airway type: video laryngoscope Laryngeal Manipulation: no Final best view of glottic structures - Cormack/Lehane Score: grade 1 ETT location: oral VL device: glide scope Moran scope blade size: 3 Tube size: 7 ETT distance at teeth/gum: 21 Oral tube type: standard ETT Cuffed: yes Number of attempt to successful placement: 1 Airway confirmation: bilateral breath sounds, positive ETCO2 and bilateral chest rise Other previous techniques attempted: none PRE PROCEDURE DETAILS: Pre evaluation for airway management: procedure Urgency: elective Preoxygenation: bag valve mask SEDATION / ANESTHESIA Anesthesia method: anesthesia POST PROCEDURE DETAILS: Procedure outcome: successful Notable Events: no complications Kimber Mcgrath M.D. ANESTHESIA ORDERABLES Final R esult documented in this encounter Visit Diagnoses Not on filedocumented in this encounter Administered Medications Inactive Administered Medications - up to 3 most recent administrations Medication Order MAR Action Action Date Dose Rate Site aprepitant injection (Aponvie) intravenous, As needed, Starting on Thu10/31/24 at 1123, Anesthesia Intra-op Given 10/31/2024 11:23 AM CDT 32 mg ceFAZolin injection 2,000 mg (Ancef) 2,000 mg (rounded from 2,080 mg = [...] indication and drug clearance factors., Indications: Prophylaxis, surgicalIndications:Prop hylaxis, surgical Given 10/31/2024 11:10 AM CDT 2 g dexAMETHasone injection (Decadron) intravenous, As needed, Starting on Thu10/31/24 at 1054, Anesthesia Intra-op Given 10/31/2024 10:54 AM CDT 4 mg fentaNYL injection (Sublimaze) intravenous, As needed, Starting on Thu10/31/24 at 1049, Anesthesia Intra-op Given 10/31/2024 10:49 AM CDT 100 mcg haloperidol lactate injection (HaldoL) intravenous, As needed, Starting on Thu10/31/24 at 1246, Anesthesia Intra-op Given 10/31/2024 12:46 PM CDT 1 mg heparin (porcine) injection subcutaneous, As needed, Starting on Thu10/31/24 at 1146, Anesthesia Intra-op Given 10/31/2024 11:46 AM CDT 5,000 Units Lactated Ringer's intravenous, Continuous Infusion: Per Instructions PRN, Starting on Thu10/31/24 at 1041, Anesthesia Intra-op New Bag 10/31/2024 10:41 AM CDT lidocaine (PF) (cardiac) injection intravenous, As needed, Starting on Thu10/31/24 at 1049, Anesthesia Intra-op Given 10/31/2024 10:49 AM CDT 100 mg ondansetron (PF) injection (Zofran) intravenous, As needed, Starting on Thu10/31/24 at 1246, Anesthesia Intra-op Given 10/31/2024 12:46 PM CDT 4 mg phenylephrine 80 mcg/mL in NaCl 0.9% 250 mL infusion intravenous, Continuous Infusion: Per Instructions PRN, Starting on Thu10/31/24 at 1052, Anesthesia Intra-op New Bag 10/31/2024 10:52 AM CDT 0.3 mcg/kg/min 18.72 mL/hr phenylephrine injection intravenous, As needed, Starting on Thu10/31/24 at 1101, Anesthesia Intra-op Given 10/31/2024 11:01 AM CDT 50 mcg propofol 10 mg/mL infusion (Diprivan) intravenous, Continuous Infusion: Per Instructions PRN, Starting on Thu10/31/24 at 1049, Anesthesia Intra-op Rate/Dose Change 10/31/2024 10:54 AM CDT 100 mcg/kg/min 49.92 mL/hr New Bag 10/31/2024 10:49 AM CDT 125 mcg/kg/min 62.4 mL/ hr propofoL injection (Diprivan) intravenous, As needed, Starting on Thu10/31/24 at 1049, Anesthesia Intra-op Given 10/31/2024 10:49 AM CDT 200 mg remifentaniL 20 mcg/mL in NaCl 0.9% 100 mL infusion (Ultiva) intravenous, Continuous Infusion: Per Instructions PRN, Starting on Thu10/31/24 at 1049, Anesthesia Intra-op Rate/Dose Change 10/31/2024 12:51 PM CDT 0.35 mcg/kg/min 87.36 mL/hr Rate/Dose Change 10/31/2024 12:48 PM CDT 0.3 mcg/kg/min 74 .88 mL/hr New Bag 10/31/2024 10:49 AM CDT 0.2 mcg/kg/min 49.92 mL /hr succinylcholine (PF) injection (Anectine) intravenous, As needed, Starting on Thu10/31/24 at 1051, Anesthesia Intra-op Given 10/31/2024 10:51 AM CDT 100 mg documented in this encounter Additional Health Concerns Active Problems Noted Date Diagnosed Date Autogenerated Problem 10/26/2024 documented as of this encounter Care Teams Molder Fitting Relationship Specialty Start Date End Date Elsewhere, Pcp PCP - General Family Medicine 05/29/17 documented as of this encounter
--- OUTSIDE RECORDS SUMMARY | 2024-11-01 | XMS_ITS | Encounter Summary ---
Author Organization [facility] Address [address] [place] [address] Care Team Providers Care Representative Government Relations Name Role Phone Elsewhere, Pcp Primary Care Provider Unavailabl e Encounter Details Date Type Department Care Team (Late st Contact Info) Description 11/01/2024 Ancillary Procedure Department of Plastic and Reconstructive Surgery Social History Tobacco Use Types Packs/Day Years Used Date Smoking Tobacco: Never Smokeless Tobacco: Never Alcohol Use Standard Drinks/Week Comments Yes 1 (1 standard drink = 0.6 oz pur e alcohol) [facility] Utilities Answer Date Recorded In the past 12 months has e [employer], gas, oil, or water [employer] threatened to shut off services in your [...] often do you attend chur ch or zoroastrianism services? 1 to 4 times per year 07/08/2022 Do you belong to any clubs o r organizations such as episcopalian groups, unions, fraternal or athletic groups, or [...] and heating? Not hard at all 07/08/2022 [facility] Occupat ional Health - [...] your living situation today? I have a [facility] place to live 07/19/2023 Education Answer Date Recorded What is the highest level of school you have completed or the highest degree you have received? 12th grade 07/08/2022 Comments No Sex and Gender Information Value Date Recorded Sex Assigned at Female 07/08/2022 2:29 PM LOCOMOTIVE CRANE ENGINEER Legal Sex Female 3:08 PM LOCOMOTIVE CRANE ENGINEER Gender Identity Female 07/08/2022 2:29 PM LOCOMOTIVE CRANE ENGINEER Sexual Orientation Straight 07/08/2022 2: 29 PM LOCOMOTIVE CRANE ENGINEER documented as of this encounter Plan of Treatment Upcoming Encounters Date Type Department Care Team (Late st Contact Info) Description 12/21/2024 2:30 PM CDT Office Visit Division of Plastic Surgery in [place], [place] [address] [place] [phone] Layla Lara APRN, C.N.P., D.N.P. [address] [place] [phone] 02/10/2025 10:30 AM CDT Clinical Communication Virtual Review in [place], [place] [address] [place] [phone] 02/14/2025 11:15 AM CDT Office Visit Department of Dermatology in [place], [place] [address] [place] [phone] Casper Avila M.D. [address] [place] [phone] documented as of this encounter Goals Goal Patient Goal Type Associated Problems Recent Progress Patient-Stated? Author Autogenera pauline Goal Care Plan Autogenerated Problem No Kari Llamas T, R.N. documented as of this encounter Visit Diagnoses Not on filedocumented in this encounter Additional Health Concerns Active Problems Noted Date Diagnosed Date Autogenerated Problem 10/26/2024 documented as of this encounter Care Teams Representative Government Relations Relationship Specialty Start Date End Date Elsewhere, Pcp PCP - General Family Medicine 05/29/17 documented as of this encounter
--- OUTSIDE RECORDS SUMMARY | 2024-11-04 | XMS_ITS | Encounter Summary ---
Author Organization [facility] Address [address] [place] [address] Care Team Providers Care Draw Fire Operator Name Role Phone Elsewhere, Pcp Primary Care Provider Unavailabl e Encounter Details Date Type Department Care Team (Late st Contact Info) Description 11/04/2024 Ancillary Procedure Department of Plastic and Reconstructive Surgery Social History Tobacco Use Types Packs/Day Years Used Date Smoking Tobacco: Never Smokeless Tobacco: Never Alcohol Use Standard Drinks/Week Comments Yes 1 (1 standard drink = 0.6 oz pur e alcohol) [facility] Utilities Answer Date Recorded In the past 12 months has e [employer], gas, oil, or water [employer] threatened to shut off services in your [...] often do you attend chur ch or holiness services? 1 to 4 times per year 07/08/2022 Do you belong to any clubs o r organizations such as taoism groups, unions, fraternal or athletic groups, or [...] and heating? Not hard at all 07/08/2022 [facility] of Occupat ional Health - Occupational [...] your living situation today? I have a [facility] place to live 07/19/2023 Education Answer Date Recorded What is the highest level of school you have completed or the highest degree you have received? 12th grade 07/08/2022 Comments No Sex and Gender Information Value Date Recorded Sex Assigned at Female 07/08/2022 2:29 PM MANAGER DELI Legal Sex Female 3:08 PM MANAGER DELI Gender Identity Female 07/08/2022 2:29 PM MANAGER DELI Sexual Orientation Straight 07/08/2022 2: 29 PM MANAGER DELI documented as of this encounter Plan of Treatment Upcoming Encounters Date Type Department Care Team (Late st Contact Info) Description 12/21/2024 2:30 PM CDT Office Visit Division of Plastic Surgery in [place], [place] [address] [place] [phone] Layla Lara APRN, C.N.P., D.N.P. [address] [place] [phone] 02/10/2025 10:30 AM CDT Clinical Communication Virtual Review in [place], [place] [address] [place] [phone] 02/14/2025 11:15 AM CDT Office Visit Department of Dermatology in [place], [place] [address] [place] [phone] Casper Avila M.D. [address] [place] [phone] documented as of this encounter Goals Goal Patient Goal Type Associated Problems Recent Progress Patient-Stated? Author Autogenera pauline Goal Care Plan Autogenerated Problem No Kari Llamas, RJairN. documented as of this encounter Procedures Procedure Name Priority Date/Time Associated Diagnosis Comments PLASTIC AND RECON SURGERY IMAGE EXAM Routine 11/04/2024 12:00 AM CDT documented in this encounter Results * Plastic And Recon Surgery Image Exam (11/04/2024 12:00 AM CDT) Narrative [facility] - 11/04/2024 10:20 AM CDT This order has been created [...] documented as of this encounter Care Teams Draw Fire Operator Relationship Specialty Start Date End Date Elsewhere, Pcp PCP - General Family Medicine 05/29/17 documented as of this encounter
--- OUTSIDE RECORDS SUMMARY | 2024-11-04 08:30 | XMS_ITS | Encounter Summary ---
Author Organization [facility] Address [address] [place] [phone] Care Team Providers Care Rental Coordinator Name Role Phone Elsewhere, Pcp Primary Care Provider Unavailabl e Reason for Referral * Outpatient (Routine) - Closed Specialty Diagnoses / Procedures Referred By Te eid Referred To Contact Plastic Surgery Leslie Mcgraw APRN, C.N.PJair, D.N.P. [address] [place] [phone] Phone: tel: fax: My Tomlin P.A.-C. [address] [place] [phone] Phone: tel: fax: Referral ID Status Reason Start Date Expiration Date Visits Re quested Visits Authorized [id number] Closed 11/04/2024 05/06/2026 1 1 Scheduling Instructions With My @1030 - override on My's calendar and pls schedule pt on [place] ! Reason for Visit * Outpatient (Routine) - Closed Specialty Diagnoses / Procedures Referred By Te eid Referred To Contact Plastic Surgery Lenora Mueller M.D., D.D.S. [address] [place] [address] [place] [phone] Phone: tel: fax: [facility] Referral ID Status Reason Start Date Expiration Date Visits Re quested Visits Authorized [id number] Closed 10/26/2024 04/27/2026 1 1 Encounter Details Date Type Department Care Team (Latest Contact Info) Description 11/04/2024 8:30 AM CDT Office Visit Division of Plastic Surgery in [place], [place] 200 [place] [address] Leslie Mcgraw APRN, C.N.P., D.N.P. 200 [place] [address] Follow Up Examination Postoperative Visit (Primary Dx) Social History Tobacco Use Types Packs/Day Years Used Date Smoking Tobacco: Never Smokeless Tobacco: Never Alcohol Use Standard Drinks/Week Comments Yes 1 (1 standard drink = 0.6 oz pur e alcohol) [facility] Utilities Answer Date Recorded In the past 12 months has e [facility], gas, oil, or water [employer] threatened to shut off services in your [...] often do you attend chur ch or samaritan services? 1 to 4 times per year 07/08/2022 Do you belong to any clubs o r organizations such as denominational groups, unions, fraternal or athletic groups, or [...] and heating? Not hard at all 07/08/2022 [facility] of Occupat ional Health - Occupational [...] living situation today? I have a [facility] place to live 07/19/2023 Education Answer Date Recorded What is the highest level of school you have completed or the highest degree you have received? 12th grade 07/08/2022 Comments No Sex and Gender Information Value Date Recorded Sex Assigned at Female 07/08/2022 2:29 PM CHANNEL PROCESS SUPERVISOR Legal Sex Female 3:08 PM CHANNEL PROCESS SUPERVISOR Gender Identity Female 07/08/2022 2:29 PM CHANNEL PROCESS SUPERVISOR Sexual Orientation Straight 07/08/2022 2: 29 PM CHANNEL PROCESS SUPERVISOR documented as of this encounter Progress Notes * Leslie Mcgraw APRN, C.N.P., D.N.P. - 11/04/2024 8:30 AM CDT SUBJECTIVE The patient verbally consented to an audio recording of their visit to assist with the completion of documentation. CHIEF COMPLAINT / REASON FOR VISIT #1 Status post rhomboid flap transposition for Mohs defect reconstruction performed by Dr. Mueller, 10/31/2024 #2 Routine postop visit - 4 days HISTORY OF PRESENT ILLNESS History of Present Illness Miss Nuzhat Ballard is a 34 year old female who presents for suture removal following recent surgery. She is accompanied by her mother. 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 Avila today in Mohs clinic on 10/26/2024. Patient then underwent Mohs reconstruction with local tissue rearrangement - right ethmoid flap transposition for Mohs defect by Dr. Mueller on 10/31/2024. She underwent nasal surgery four days ago. Post-operatively, she experienced redness, heat, and swelling at the surgical site, which resolved with Tylenol and ibuprofen. She currently has no pain andis not using medication. She experienced diarrhea after starting antibiotics and discontinued them after four doses. She hassince recovered and is no longer on antibiotics. She is applying Bactroban ointment to the surgical site and leaving it open to air without additional dressings. She remains active, volunteering at a food [employer], and lifts up to ten pounds. She has no fever, chills, or other systemic symptoms. REVIEW OF SYSTEMS Pertinent items noted in HPI. OBJECTIVE PHYSICAL EXAM General: Patient is alert and oriented x 3. She does not appear to be in acute distress. Very pleasant and accompanied by her mother. Physical Exam HEENT: Minimal swelling on the right side of the nose, clean and intact incisions with sutures present. No erythema or drainage noted. No obvious signs of fluid accumulation or infection noted. ASSESSMENT / PLAN #1 Status post rhomboid flap transposition for Mohs defect reconstruction performed by Dr. Mueller, 10/31/2024 #2 Routine postop visit - 4 days It was a pleasure seeing Miss Nuzhat Ballard today in the clinic. She is recovering well and incisions are healing nicely after her recent operation. Assessment & Plan Postoperative care following nasal surgery Postoperative day 4 with minimal swelling and redness. No infection. Sutures intact. Pain managed. Incision healing well. Discussed silicone tape for scar minimization once healed. - Remove some of the sutures today. Remaining sutures will be removed on Wednesday 11/08 - Apply Bactroban ointment to maintain moisture. - Advise against silicone tape until incision is healed, approximately in 1-2 weeks. - Instruct to keep incision clean and dry, allowing it to air out. - Advise to avoid swimming and submerging in water. - Permit washing with water and soap, blot dry. - Maintain lifting restriction of 10 pounds for one week post-surgery. - Follow up in 4 days to assess healing/suture removal. Signs/symptoms of an infection were reviewed with the patient and she was instructed to call us immediately if any of these occur. Patient has all appropriate phone numbers to call in case she has questions or concerns. Photographs obtained with patient's permission. All questions were asked and answered per patient report. PATIENT EDUCATION Ready to learn, no apparent learning barriers were identified; learning preferences include listening. Explained diagnosis and treatment plan; patient expressed understanding of the content. documented in this encounter Plan of Treatment Upcoming Encounters Date Type Department Care Team (Late st Contact Info) Description 12/21/2024 2:30 PM CDT Office Visit Division of Plastic Surgery in [place], [place] [address] [place] [phone] Layla Lara APRN, C.N.PJair, D.N.P. [address] [place] [phone] 02/10/2025 10:30 AM CDT Clinical Communication Virtual Review in [place], [place] 200 [place] [address] 02/14/2025 11:15 AM CDT Office Visit Department of Dermatology in [place], [place] [address] [place] [phone] Casper Avila M.D. [address] [place] [phone] Scheduled Referrals Name Type Priority Associated Diagnoses Orde r Schedule Plastic Surgery office visit (clinic) Outpatient Referral Routine Expected: 11/08/2024, Expires: 02/04/2026 documented as of this encounter Goals Goal Patient Goal Type Associated Problems Recent Progress Patient-Stated? Author Autogenera pauline Goal Care Plan Autogenerated Problem No Kari Llamas, RJairN. documented as of this encounter Visit Diagnoses Diagnosis Follow Up Examination Postoperative Visit- Primary documented in this encounter Additional Health Concerns Active Problems Noted Date Diagnosed Date Autogenerated Problem 10/26/2024 documented as of this encounter Care Teams Rental Coordinator Relationship Specialty Start Date End Date Elsewhere, Pcp PCP - General Family Medicine 05/29/17 documented as of this encounter
--- OUTSIDE RECORDS SUMMARY | 2024-11-08 10:30 | XMS_ITS | Encounter Summary ---
Author Organization [facility] Address [address] [place] [address] Care Team Providers Care Cyber Transport Systems Specialist Name Role Phone Elsewhere, Pcp Primary Care Provider Unavailabl e Reason for Referral * Outpatient (Routine) - Authorized Specialty Diagnoses / Procedures Referred By Te eid Referred To Contact Plastic Surgery My Tomlin P.A.-C. [address] [place] [phone] Phone: tel: fax: [facility] Referral ID Status Reason Start Date Expiration Date V isits Requested Visits Authorized [id number] Authorized 11/08/2024 05/10/2026 1 1 Scheduling Instructions 5-6 weeks with TERI- My Rich, or Leslie Reason for Visit * Outpatient (Routine) - Closed Specialty Diagnoses / Procedures Referred By Contac t Referred To Contact Plastic Surgery Leslie Mcgraw APRN, C.N.P., D.N.P. [address] [place] [phone] Phone: tel: fax: My Tomlin P.A.-C. [address] [place] [phone] Phone: tel: fax: Referral ID Status Reason Start Date Expiration Date Visits Re quested Visits Authorized [id number] Closed 11/04/2024 05/06/2026 1 1 Encounter Details Date Type Department Care Team (Latest Contact Info) Description 11/08/2024 10:30 AM CDT Office Visit Division of Plastic Surgery in [place], [place] [address] [place] [phone] My Tomlin P.A.-C. [address] [place] [phone] Follow Up Examination Postoperative Visit (Primary Dx) Social History Tobacco Use Types Packs/Day Years Used Date Smoking Tobacco: Never Smokeless Tobacco: Never Alcohol Use Standard Drinks/Week Comments Yes 1 (1 standard drink = 0.6 oz pur e alcohol) [facility] [employer] Answer Date Recorded In the past 12 months has [facility] [employer], oil, or water [employer] threatened to shut off services in your [...] week 07/08/2022 How often do you attend [facility] or zoroastrianism services? 1 to 4 times [...] and heating? Not hard at all 07/08/2022 [facility] of Occupat ional Health - Occupational [...] Sex Assigned at Female 07/08/2022 2:29 PM MOLD SHOP SUPERVISOR Legal Sex Female 3:08 PM MOLD SHOP SUPERVISOR Gender Identity Female 07/08/2022 2:29 PM MOLD SHOP SUPERVISOR Sexual Orientation Straight 07/08/2022 2: 29 PM MOLD SHOP SUPERVISOR documented as of this encounter Progress Notes * My Tomlin P.A.-C. - 11/08/2024 10:30 AM CDT SUBJECTIVE CHIEF COMPLAINT / REASON FOR VISIT Nuzhat Ballard is a 34 y.o. female presenting today for routine postsurgical follow up. The patient verbally consented to an audio recording of their visit to assist with the completion of documentation. HISTORY OF PRESENT ILLNESS History of Present Illness #1 Status post rhomboid flap transposition for Mohs defect reconstruction performed by Dr. Mueller, 10/31/2024 Miss Nuzhat Ballard is a 34 year old female who presents for suture removal and follow-up after a recent surgical procedure. She is eight days post-procedure and has been applying ointment multiple times a day to keep the area moist, which has aided in the healing process. Initially, the day after the procedure, she experienced significant swelling, redness, and tenderness in the area. These symptoms improved with the use of alternating ibuprofen and Tylenol, and she no longer requires these medications. No signs of infection such as drainage, spreading redness, fever, or chills have been present since the initial post-operative period. The sutures have been causing irritation and itchiness, which she hopes will improve once they are removed. She has been adhering to post-operative care instructions, including avoiding direct pressure from the shower and not submerging the area in water. She has been adhering to activity restrictions, including a ten-pound lifting limit and avoiding activities that elevate her heart rate. She has been walking instead of her usual treadmill workouts. She plans to return to her community home soon, and her caregivers there will need specific writteninstructions for ongoing care. REVIEW OF SYSTEMS Pertinent items noted in HPI. OBJECTIVE PHYSICAL EXAMINATION General: Patient is alert and oriented x 3. She does not appear to be in acute distress. Very pleasant. Physical Exam SKIN: Skin healing well with residual scabbing, which is normal. No open areas. No erythema, drainage, or signs of infection. ASSESSMENT / PLAN Assessment & Plan Postoperative wound care Eight days post-procedure with local tissue rearrangement and flap creation. Currently, no signs ofinfection or drainage. Healing well with residual scabbing. Pruritus likely due to sutures and normal healing. - Remove remaining sutures today. - Continue mupirocin ointment application to scabbed areas around the nose three times a day for 3 more days. - Initiate scar care with Prosil scar stick on the lower portion of the scar twice a day. May use on the remaining upper scar by the nose in 3 days, if scabs fully resolved. - Avoid water submersion in water for 1 more week, until scabs fully resolved. - Restrict activities, including lifting over 10 pounds and high-intensity exercise, until the end of the week (11/12). - Schedule follow-up in six weeks, with an option for video consultation if needed. Photos were obtained for record. It was an absolute pleasure taking care of Halina Ballard. documented in this encounter Plan of Treatment Upcoming Encounters Date Type Department Care Team (Late st Contact Info) Description 12/21/2024 2:30 PM CDT Office Visit Division of Plastic Surgery in [place], [place] [address] [place] [phone] Layla Lara APRN, C.N.P., D.N.P. [address] [place] [phone] 02/10/2025 10:30 AM CDT Clinical Communication Virtual Review in [place], [place] [address] [place] [phone] 02/14/2025 11:15 AM CDT Office Visit Department of Dermatology in [place], [place] [address] [place] [phone] Casper Avila M.D. [address] [place] [phone] Scheduled Referrals Name Type Priority Associated Diagnoses Orde r Schedule Plastic Surgery office visit (clinic) Outpatient Referral Routine Expected: 12/19/2024 (Approximate), Expires: 02/08/2026 documented as of this encounter Goals Goal [...] documented as of this encounter Care Teams Cyber Transport Systems Specialist Relationship Specialty Start Date End Date Elsewhere, Pcp PCP - General Family Medicine 05/29/17 documented as of this encounter
--- OUTSIDE RECORDS SUMMARY | 2024-11-08 12:00 | XMS_ITS | Encounter Summary ---
Author Organization [facility] Address [address] [place] [address] Care Team Providers Care Film Casting Operator Name Role Phone Elsewhere, Pcp Primary Care Provider Unavailabl e Encounter Details Date Type Department Care Team (Latest Contact Info) Description 11/08/2024 12:00 PM CDT Ancillary Procedure Department of Plastic and Reconstructive Surgery Social History Tobacco Use Types Packs/Day Years Used Date Smoking Tobacco: Never Smokeless Tobacco: Never Alcohol Use Standard Drinks/Week Comments Yes 1 (1 standard drink = 0.6 oz pur e alcohol) [facility] Utilities Answer Date Recorded In the [...] often do you attend chur ch or evangelical services? 1 to 4 times per year [...] and heating? Not hard at all 07/08/2022 [facility] [place] of Occupat ional Health - Occupational Stress [...] your living situation today? I have a [facility] place to live 07/19/2023 Education Answer Date Recorded What is the highest level of school you have completed or the highest degree you have received? 12th grade 07/08/2022 Comments No Sex and Gender Information Value Date Recorded Sex Assigned at Female 07/08/2022 2:29 PM MIDDLE SCHOOL DIRECTOR Legal Sex Female 3:08 PM MIDDLE SCHOOL DIRECTOR Gender Identity Female 07/08/2022 2:29 PM MIDDLE SCHOOL DIRECTOR Sexual Orientation Straight 07/08/2022 2: 29 PM MIDDLE SCHOOL DIRECTOR documented as of this encounter Plan of Treatment Upcoming Encounters Date Type Department Care Team (Late st Contact Info) Description 12/21/2024 2:30 PM CDT Office Visit Division of Plastic Surgery in [place], [place] [address] [place] [phone] Layla Lara APRN, C.N.P., D.N.P. [address] [place] [phone] 02/10/2025 10:30 AM CDT Clinical Communication Virtual Review in [place], [place] [address] [place] [phone] 02/14/2025 11:15 AM CDT Office Visit Department of Dermatology in [place], [place] [address] [place] [phone] Casper Avila M.D. [address] [place] [phone] documented as of this encounter Goals Goal Patient Goal Type Associated Problems Recent Progress Patient-Stated? Author Autogenera pauline Goal Care Plan Autogenerated Problem No Muriel, Kari T, R.N. documented as of this encounter Procedures Procedure Name Priority Date/Time Associated Diagnosis Comments PLASTIC AND RECON SURGERY IMAGE EXAM Routine 11/08/2024 11:53 AM CDT documented in this encounter Results * Plastic And Recon Surgery Image Exam (11/08/2024 11:53 AM CDT) 11/08/2024 12:0 0 PM CDT Narrative [facility] - 11/08/2024 11:53 AM CDT This order has been created [...] documented as of this encounter Care Teams Film Casting Operator Relationship Specialty Start Date End Date Elsewhere, Pcp PCP - General Family Medicine 05/29/17 documented as of this encounter
--- OUTSIDE RECORDS SUMMARY | 2024-11-25 12:44 | XMS_ITS | Encounter Summary ---
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 [address] [place] [phone] Phone: tel: fax: [facility] Referral ID Status Reason Start Date Expiration Date Visits Re quested Visits Authorized [id number] Closed 10/17/2024 01/17/2026 1 1 Encounter Details Date Type Department Care Team (Late st Contact Info) Description 10/17/2024 Orders Only Department of Dermatology in [place], [place] [address] [place] [phone] Rodrigo Driver M.D. 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 1 to 4 times per year 07/08/2022 Do you belong to any clubs o r organizations such as restorationism groups, unions, fraternal or athletic groups, or [...] and heating? Not hard at all 07/08/2022 [facility] [place] of Occupat ional Health - Occupational Stress [...] living situation today? I have a [facility] place to live 07/19/2023 Education Answer Date Recorded What is the highest level of school you have completed or the highest degree you have received? 12th grade 07/08/2022 Comments Unknown Sex and Gender Information Value Date Recorded Sex Assigned at Female 07/08/2022 2:29 PM INFRASTRUCTURE MANAGER Legal Sex Female 3:08 PM INFRASTRUCTURE MANAGER Gender Identity Female 07/08/2022 2:29 PM INFRASTRUCTURE MANAGER Sexual Orientation Straight 07/08/2022 2: 29 PM INFRASTRUCTURE MANAGER documented as of this encounter Plan of Treatment Upcoming Encounters Date Type Department Care Team (Late st Contact Info) Description 12/21/2024 2:30 PM CDT Office Visit Division of Plastic Surgery in [place], [place] [address] [place] [phone] Layla Lara APRN, C.N.P., D.N.P. [address] [place] [phone] 02/10/2025 10:30 AM CDT Clinical Communication Virtual Review in [place], [place] 200 [place] [phone] 02/14/2025 11:15 AM CDT Office Visit Department of Dermatology in [place], [place] [address] [place] [phone] Casper Avila M.D. 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
--- OUTSIDE RECORDS SUMMARY | 2024-11-25 12:44 | XMS_ITS | Clinical Summary ---
Author Organization [facility] Address [address] [place] [address] Care Team Providers Care Animal Science Professor Name Role Phone Elsewhere, Pcp Primary Care Provider Unavailabl e Source Comments Patient records contain information from all sites at [facility]. For routine questions regarding patient records, call [phone] during business hours, M-F 8:00 AM - 5:00 PM Central Time. Record requests for emergency care only can be directed to [phone] at any time.[facility] Allergies Active Allergy Reactions Criticality Noted Date Comments Cinebar Hives (Reselect Reaction) 06/17/2013 Macadamia Nut Oil Hives (Reselect Reaction) 11/2013 Tree Nut Hives (Reselect Reac tion),GI intolerance 04/17/2016 Medications albuterol 90 mcg/actuation inhaler Inhale 2 puffs 4 (four) times a day as needed. 03/12/20 22 Active cetirizine (ZyrTEC) 10 mg tablet Take 1 tablet by mouth daily as needed. 08/12/19 14 Active FLUoxetine (PROzac) 20 mg/5 mL (4 mg/mL) solution Take 10 mg by mouth. 03/12/20 22 Active multivitamin tablet Take 1 tablet by mouth daily. 03/11/20 24 Active psyllium (KonsyL) powder Take 1 tsp by mouth as needed. Mix 1 tsp in liquid then take by mouth once daily. No sugar metamucil, orange flavor 03/11/20 Active acetaminophen (TylenoL) 160 mg/5 mL liquid Take 31.3 mL (1,000 mg total) by mouth every 6 (six) hours as needed for pain. 11/01/19 Active ibuprofen 50 mg/1.25 mL drops Take 15 mL (600 mg total) by mouth every 6 (six) hours as needed for pain. 11/01/19 Active mupirocin (Bactroban) 2 % ointment Apply 1 Application topically 2 (two) times a day for 7 days. Apply to right face incision 22 g 2 10/31/2024 3:41 PM CDT 11/01/19 025 enoxaparin (Lovenox) 40 mg/0.4 mL injection Inject 0.4 mL (40 mg total) under the skin daily for 7 days. 2.8 mL 11/01/19 025 Discontinu ed(Stop Taking at Discharge) amoxicillin-pot clavulanate (Augmentin) 250-62.5 mg/5 mL suspensionIndic ations:Malignan t Neoplasm Of Nose Squamous Cell Carcinoma Take 10 mL (500 mg total) by mouth 2 (two) times a day for 3 days. Shake Well. 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 Follow Up Examination Postoperative Visit (Primary Dx) 11/04/2024 8:30 AM CDT Office Visit Division of Plastic Surgery in [place], [place] [address] [place] [phone] Leslie Mcgraw APRN, C.N.P., D.N.P. Follow Up Examination Postoperative Visit (Primary Dx) 11/04/2024 Ancillary Procedure Department of Plastic and Reconstructive Surgery 11/01/2024 Ancillary Procedure Department of Plastic and Reconstructive Surgery 10/31/2024 10:41 AM CDT Anesthesia Event [facility] [address] [place] [phone] Jc Stallworth M.D. 10/31/2024 9:44 AM CDT - 10/31/2024 12:28 PM CDT Surgery [facility] [address] [place] [phone] Lenora Mueller M.D., D.D.S. RECONSTRUCTION RIGHT CHEEK, NOSE MOHS DEFECT USING LOCAL TISSUE REARRANGEMENT 10/31/2024 7:57 AM CDT - 10/31/2024 3:05 PM CDT Hospital Encounter [facility] [address] [place] [phone] Lenora Mueller M.D., D.D.S. 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 Dermatopathology 10/12/2024 2:40 PM CDT Comprehensive Visit Department of Dermatology in [place], [place] [address] [place] [phone] Rodrigo Driver M.D. Tumor Skin Uncertain Behavior (Primary Dx); Screening Examination Skin Cancer Discharge Disposition: Home or Self Care 10/12/2024 Ancillary Procedure Department of Dermatology 10/11/2024 10:45 AM CDT Clinical Communication Virtual Review in [place], [place] [address] [place] [address] Pre-visit Intake from Last 3 Months Immunizations Immunization Administration Dates Next Due 4vHPV (discontinued) 04/27/2009,08/13/2007,12/04 H1N1 All Forms 04/25/2009,03/23/2009 HepA Pediatric/Adolescent 08/13/2007,12/04/2006 HepB Pediatric/Adolescent 05/14/1999,07/26/1998, 07/03/1997 Influenza, Unspecified 04/25/2009,2007,05/08/2006,1998 MCV4 (Menactra)(Discontinued) 02/06/2005 MMR 07/05/2001 Tdap 10/17/2010,02/09/2003 influenza trivalent LAIV (Na purnima) (2 years through 49 years) 05/18/2014,05/20/2013 Family History Medical History Relation Name Comments Diabetes Brother 1 darling rodriguez Type 1 Thyroid disease Brother 2 darling tapia Genetic disease Father yuliya medrano-elio Long QT Hyperlipidemia Father yuliya casanovaon-elio Prostate cancer Father's Brother 1 Bertram Elio Other cancer Father's Brother 2 Janak Elio bladder c ancer Colon cancer Maternal Grandmother ilana medrano Osteoporosis Maternal Grandmother ilana medrano Parkinson disease Maternal Grandmother ilana medrano Colon polyps Mother Rosina Casanovaon-Elio Prostate cancer Mother's Brother 1 Ryan Medrano Prostate cancer Mother's Brother 2 Danielito Medrano Melanoma Mother's Sister 1 Isela Andreone Skin cancer Mother's Sister 1 Isela Andreone Other cancer Mother's Sister 2 Arelis Weiss multiple m yeloma Diabetes Paternal Grandfather mabel marcela Hypertension Paternal Grandfather mabel marcela Parkinson disease Paternal Grandfather ambel casanovaon Prostate cancer Paternal Grandfather mabel casanovaon Alcohol abuse Paternal Grandmother agnieszka elio Genetic disease Sister Emilie Esdal Long QT Relation Name Status Comments Brother 1 darling medrano -elio Brother 2 darling casanovaon-elio Father yuliya casanovaon-elio Father's Brother 1 Bertram Elio Father's Brother 2 Janak Elio Maternal Grandmother ilana medrano Mother Rosina Medrano-Elio Mother's Brother 1 Ryan Medrano Mother's Brother 2 Danielito Medrano Mother's Sister 1 Isela Andreone Mother's Sister 2 Arelis Weiss Paternal Grandfather mabel medrano Paternal Grandmother agnieszka elio Sister Emilie Esdal Social History Tobacco Use Types Packs/Day Years Used Date Smoking Tobacco: Never Smokeless Tobacco: Never Tobacco Cessation:Counseling Given: Not Answered Alcohol Use Standard Drinks/Week Comments Yes 1 (1 standard drink = 0.6 oz pur e alcohol) [facility] Utilities Answer Date Recorded In the past 12 months has [facility] Monitoring Division, gas, oil, or water [employer] threatened to shut off services in your [...] How often do you attend chur or hinduism services? 1 to 4 times per year [...] and heating? Not hard at all 07/08/2022 [facility] of Occupat ional Health - Occupational Stress [...] your living situation today? I have a [facility] place to live 07/19/2023 Education Answer Date Recorded What is the highest level of school you have completed or the highest degree you have received? 12th grade 07/08/2022 Comments No Sex and Gender Information Value Date Recorded Sex Assigned at Female 07/08/2022 2:29 PM PERSONAL INJURY PARALEGAL Legal Sex Female 3:08 PM PERSONAL INJURY PARALEGAL Gender Identity Female 07/08/2022 2:29 PM PERSONAL INJURY PARALEGAL Sexual Orientation Straight 07/08/2022 2: 29 PM PERSONAL INJURY PARALEGAL Last Filed Vital Signs Vital Sign Reading [...] Mass Index 31.48 10/31/2024 8:22 AM CDT Plan of Treatment Upcoming Encounters Date Type Department Care Team (Late st Contact Info) Description 12/21/2024 2:30 PM CDT Office Visit Division of Plastic Surgery in [place], [place] [address] [place] [phone] Layla Lara APRN, C.N.P., D.N.P. [address] [place] [phone] 02/10/2025 10:30 AM CDT Clinical Communication Virtual Review in [place], [place] [address] [place] [phone] 02/14/2025 11:15 AM CDT Office Visit Department of Dermatology in [place], [place] [address] [place] [phone] Casper Avila M.D. [address] [place] [phone] Health Maintenance Due Date Last Done Comments Hepatitis C Screening 1989 Depression Screening (Annual PHQ-2) 06/15/2024 Lipid (Cholesterol) Screening 03/25/2028 03/25/2023, 03/12/2022, 05/20/2013 DTaP,Tdap,and Td Vaccines (4 - Td or Tdap) 03/24/2029 03/24/2019, 10/17/2010, 02/09/2003, Additional history exists Hepatitis B Vaccines Completed 05/14/1999, 07/26/1998, 07/03/1997 Hepatitis A Vaccines Completed 08/13/2007, 12/05/19 07 HPV Vaccines Completed 04/27/2009, 07/17, 12/04/2006 Pneumococcal vaccine (0-49 years) Aged Out 03/25/2023 No longer eligible based on patient's age to complete this topic COVID-19 Vaccine Completed 02/21/2024, 01/2023, 03/04/2022, Additional history exists Influenza Vaccine Completed 03/11/2024, , 03/12/2022, Additional history exists IPV Vaccines Aged Out No longer eligi ble based on patient's age to complete this topic Goals Goal Patient Goal Type Associated Problems Recent Progress Patient-Stated? Author Autogenera pauline Goal Care Plan Autogenerated Problem No Kari Llamas [employer] Implanted Type Area Drier Operator Device Identifier Shelf Expiration Date Model / Serial / Lot Conversions - Default Historical Implant Device Implanted:2014 (Quantity not on file) Misc Other Description:Device Status Te xt - MiscOther. dental implant and permanemt retainer. 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 11/08/2024 12:0 0 PM CDT Narrative [facility] - 11/08/2024 11:53 AM CDT This order has been created and auto-finalized to support the import of images acquired without order. The clinical documentation to support these images can be found on the encounter that produced images. Provider Not In System IMG NON RAD IMAGING PROCE DURES Final Result IIMS NA * Airway (10/31/2024 10:52 AM CDT) Narrative [...] ETT location: oral VL device: glide scope [place] scope blade size: 3 Tube size: 7 [...] Mcgrath M.D. ANESTHESIA ORDERABLES Final R esult * nose, right ala 24 Mohs micrographic surgery-Dermatology Image Exam (10/26/2024 12:00 AM CDT) Only the most recent of2 resultswithin the time period is included. Narrative [facility] - 10/26/2024 12:47 PM CDT This order has been created and auto-finalized to support the import of images acquired without order. The clinical documentation to support these images can be found on the encounter that produced images. us Provider Not In System IMG NON RAD IMAGING PROCE DURES Final Result IIMS NA * Dermatopathology (10/12/2024 3:15 PM CDT) 10/17/2024 10:24 AM CDT PDRM Participated in the Interpretation Coco Dunbar M.D. -Dermatopathology Fellow 10/17/2024 10:24 AM CDT PDRM Report electronically signed by Amna Bolanos M.D. 10/17/2024 10:24 AM CDT PDRM Gross Description Received in formalin labeled with [...] LAB PATH DERM ORDERABLES Fi nal Result [facility] [address] [place] [address], [facility] [address] [place] [address] * (ABNORMAL) Lipid Panel (05/20/2013 3:45 PM PERSONAL INJURY PARALEGAL) Cholesterol, Total 197 0 - 200 MGDL POWERCHART HX HDL 49.0 40.0 - 60.0 MGDL POWERCHART Triglycerides 244(H) 0 - 150 MGDL POWERCHART Calculated LDL 99 0 - 100 MGDL POWERCHART Blood 05/20/2013 3:45 PM PERSONAL INJURY PARALEGAL Sharla Muniz M.D. LAB BLOOD ADD-ON Final Res ult POWERCHART from Last 3 Months or Most Recently Relevant to Health Maintenance Additional Health Concerns Active Problems Noted Date Diagnosed Date Autogenerated Problem 10/26/2024 Insurance [place] Care Teams Animal Science Professor Relationship Specialty Start Date End Date Elsewhere, Pcp PCP - General Family Medicine 05/29/17
--- OUTSIDE RECORDS SUMMARY | 2024-11-25 12:45 | XMS_ITS | Encounter Summary ---
Author Organization [facility] Address [address] [place] [phone] Care Team Providers Care Stock Turner Name Role Phone Elsewhere, Pcp Primary Care Provider Unavailabl e Encounter Details Date Type Department Care Team (Late st Contact Info) Description 10/17/2024 Results Follow-Up Department of Dermatology in [place], [place] [address] [place] [phone] Rodrigo Driver M.D. [address] [place] [phone] Dermatopathology Social History Tobacco Use Types Packs/Day Years Used Date Smoking Tobacco: Never Smokeless Tobacco: Never Alcohol Use Standard Drinks/Week Comments Yes 1 (1 standard drink = 0.6 oz pur e alcohol) [facility] Utilities Answer Date Recorded In the past 12 months has e [employer], gas, oil, or water [employer] threatened to shut off services in your [...] often do you attend chur ch or rastafari services? 1 to 4 times per year 07/08/2022 Do you belong to any clubs o r organizations such as hindu groups, unions, fraternal or athletic groups, or [...] and heating? Not hard at all 07/08/2022 [facility] of Occupat ional Health - Occupational [...] your living situation today? I have a [facility] place to live 07/19/2023 Education Answer Date Recorded What is the highest level of school you have completed or the highest degree you have received? 12th grade 07/08/2022 Comments Unknown Sex and Gender Information Value Date Recorded Sex Assigned at Female 07/08/2022 2:29 PM NO EXPERIENCE Legal Sex Female 3:08 PM NO EXPERIENCE Gender Identity Female 07/08/2022 2:29 PM NO EXPERIENCE Sexual Orientation Straight 07/08/2022 2: 29 PM NO EXPERIENCE documented as of this encounter Plan of Treatment Upcoming Encounters Date Type Department Care Team (Late st Contact Info) Description 12/21/2024 2:30 PM CDT Office Visit Division of Plastic Surgery in [place], [place] 200 [place] [phone] Layla aLra APRN, C.N.P., D.N.P. [address] [place] [phone] 02/10/2025 10:30 AM CDT Clinical Communication Virtual Review in [place], [place] 200 [place] [phone] 02/14/2025 11:15 AM CDT Office Visit Department of Dermatology in [place], [place] [address] [place] [phone] Casper Avila M.D. [address] [place] [phone] documented as of this encounter Visit Diagnoses Not on filedocumented in this encounter Care Teams Stock Turner Relationship Specialty Start Date End Date Elsewhere, Pcp PCP - General Family Medicine 05/29/17 documented as of this encounter
[2024-11-25 13:06] VITALS: BP 110/77; PULSE 67; RESP 18; TEMP 36.8; O2SAT 97; BMI 31.2
--- NOTE | 2024-11-25 13:38 | CRLHL7_ITS ---
For Patients: As a result of the Century Cures Act, medical imaging exams and procedure reports are released immediately into your electronic medical record. You may view this report before your referring provider. If you have questions, please contact your health care provider. INDICATION: pain and swelling, knee/calf right leg COMPARISON: 09/04/2022 TECHNIQUE: A compression venous ultrasound exam was performed of the right lower extremity using spence-scale imaging, color Doppler and spectral Doppler analysis. FINDINGS: Sonographic imaging of the right lower extremity demonstrates normal compressibility and color Doppler venous blood flow within the common femoral vein, deep femoral vein, and the proximal greater saphenous vein. Within the thigh, the femoral vein is patent and compressible. At a lower level, the posterior tibial veins also show normal compressibility and color Doppler venous blood flow. Compressibility of the right popliteal vein noted with color Doppler flow. Linear structures are present within the popliteal vein in the area of prior occlusive DVT. Limited imaging of the contralateral groin demonstrates a normal spectral waveform and color Doppler venous blood flow within the left common femoral vein. IMPRESSION: No acute DVT. Normal patency of the right popliteal vein with some residual fibrin present from previous DVT. Dictated by Moses Meyers MD @ 11/25/2024 3:08:46 PM (Electronically Signed)
--- NOTE | 2024-11-25 13:39 | ED_ITS ---
HPI - General Adult General Chief complaint: Extremity Pain/Injury, Lower Stated complaint: Right leg and foot- History of DVT Time Seen by Provider: 11/25/24 12:50 History of Present Illness HPI narrative: Patient is a 34-year-old woman with history of DVT that occurred when she was on a brief S region therapy. She completed 6 months of anticoagulation and today many months later she presents with pain and swelling in the medial aspect of her right leg. The pain extends from the medial malleolus up the medial calf it does not meet the thigh or knee. There is no swelling or induration. Patient has had no recent risk factors such is extensive travel or any trauma. She has had no chest pain no shortness of breath. Related Data Home Medications ?Medication ?Instructions ?Recorded ?Confirmed albuterol sulfate 90 mcg/actuation inhalation 07/09/22 05/29/23 aerosol inhaler (Ventolin HFA) fluoxetine 20 mg/5 mL (4 mg/mL) 20 mg PO ONCE 07/09/22 11/25/24 oral solution cetirizine 1 mg/mL oral solution 10 mg PO DAILY 11/25/24 Allergies Allergy/AdvReac Type Severity Reaction Status Date / Time macadamia nut oil Allergy Severe hives Verified 11/25/24 13:05 almonds Allergy Severe Hives Uncoded 05/29/23 10:50 Review of Systems Status of ROS: Reports: 10 or more systems reviewed and unremarkable except as noted in History and below [facility] Medical History Adjustment disorder with mixed anxiety and depressed mood ?F43.23 - Adjustment disorder with mixed anxiety and depressed mood (ICD-10) 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 - Marilin-Danlos syndrome, unspecified (ICD-10) Developmental delay, mild ?R62.50 - Unspecified lack of expected normal physiological development in childhood (ICD-10) Mild intermittent asthma ?J45.20 - Mild intermittent asthma, uncomplicated (ICD-10) DVT (deep venous thrombosis) (08/30/22) ?I82.409 - Acute embolism and thrombosis of unspecified deep veins of unspecified lower extremity (ICD-10) Surgical History Status post appendectomy (03/31/23) ?Z90.49 - Acquired absence of other specified parts of digestive tract (ICD- 10) Status post laparoscopic hysterectomy (03/31/23) ?Z90.710 - Acquired absence of both cervix and uterus (ICD-10) H/O wisdom tooth extraction ?K08.409 - Partial loss of teeth, unspecified cause, unspecified class (ICD- 10) Family History Maternal Grandmother Colon cancer Father High cholesterol Brother Diabetes Family/Other Breast cancer Other Long QT syndrome Social History Narrative: Lives with parents who are her guardians Highest level of school completed/degree received: high school graduate Smoking Status: Never smoker Non-prescribed substance use: denies use Caffeine: No Are you currently sexually active: No service: No Exam Narrative: Exam Narrative: EXAM GENERAL: Patient appears comfortable and well. EYES: No scleral icterus. LYMPH: No supraclavicular or cervical lymphadenopathy. SKIN: Visible skin seen during exam normal or with benign process only. EXT: No dependent lower extremity pedal edema. HEART: Regular rate and rhythm with no murmurs, rubs, or gallops. LUNGS: Clear to auscultation bilaterally with no crackles or wheezes. ABD: Soft, non tender, non distended. PSYCH: Good eye contact, speech is not pressured. Const: Vital Signs, click to edit/add: Vital Signs - 24 hr 11/25/24 13:06 11/25/24 14:35 Temperature 98.2 F Pulse Rate [Pulse Oximeter] 67 70 Respiratory Rate 18 16 Blood Pressure [Ri ght Upper Arm] 110/77 116/80 Pulse Oximetry 97 99 Oxygen Delivery Me thod Room Air Room Air Course Course ED Course: Patient seen and examined. Ultrasound of the lower extremity ordered. Vital Signs Vital signs: Initial Vital Signs Temperature 98.2 F 11/25/24 13:06 Temperature Source Temporal Artery Scan 11/25/24 13:06 Pulse Rate 67 11/25/24 13:06 Respiratory Rate 18 11/25/24 13:06 Blood Pressure 110/77 11/25/24 13:06 Blood Pressure Mean 88 11/25/24 13:06 Pulse Oximetry 97 06/13/25 13:06 Oxygen Delivery Method Room Air 11/25/24 13:06 Vital Signs Temperature 98.2 F 11/25/24 13:06 Pulse Rate 67 11/25/24 13:06 Respiratory Rate 18 11/25/24 13:06 Blood Pressure 110/77 11/25/24 13:06 Pulse Oximetry 97 11/25/24 13:06 Oxygen Delivery Method Room Air 11/25/24 13:06 Temperature 98.2 F 11/25/24 13:06 Pulse Rate 70 11/25/24 14:35 Respiratory Rate 16 11/25/24 14:35 Blood Pressure 116/80 11/25/24 14:35 Pulse Oximetry 99 11/25/24 14:35 Oxygen Delivery Method Room Air 11/25/24 14:35 Medical Decision Making MDM Narrative Medical decision making narrative: Patient is a 34-year-old woman with history of DVT who presents with right calf pain and swelling. Ultrasound of the right lower extremity does show residual fibrin but no acute DVT. Patient symptoms are minimal. She has has no deformities or swelling. She is otherwise feeling fine. This time reassurance offered continued symptomatic care follow-up as needed. Discharge Plan Discharge Clinical Impression: Acute leg pain Patient Disposition: Home, Self-Care Condition: Stable Instructions: Leg Cramps (ED) Additional Instructions: Continue current care Tylenol Hydration Follow-up as needed. Activity Level: No Restrictions Discharge Diet: Regular Prescriptions: No Action fluoxetine 20 mg/5 mL (4 mg/mL) solution 20 mg PO ONCE albuterol sulfate [Ventolin HFA] 90 mcg/actuation HFA aerosol inhaler inhalation cetirizine 1 mg/mL solution 10 mg PO DAILY Follow Up/Referrals: Irene Mason MD [Primary Care Provider, Family Practice] Stand Alone Forms: MyHealth Info Instructions
--- OUTSIDE RECORDS SUMMARY | 2024-11-25 14:26 | XMS_ITS | Clinical Summary ---
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 Size medium. 1/daily 96 Each 3 4 Active cetirizine (Children's ZyrTEC Allergy) 1 mg/mL solutionIndicatio ns:Mild intermittent asthma without complication (HC) Take 10 mL (10 mg) by mouth once daily. 900 mL 3 4 Active calcium phosphate-vitamin D3 250 mg-10 mcg (400 unit) chewIndications:R outine general medical examination at a health care facility 1 gummy tablet twice daily. 180 Tablet 3 4 Active albuterol HFA (Ventolin HFA) 90 mcg/actuation inhalerIndication s:Mild intermittent asthma without complication (HC) Inhale 2 Puffs by mouth 4 times daily if needed for Shortness Of Breath. 1 Each 3 4 Active FLUoxetine (PROZAC) 20 mg/5 mL solutionIndicatio ns:Adjustment disorder with mixed anxiety and depressed mood Take 2.5 mL (10 mg) by mouth once daily in the morning. 300 mL 3 4 Active multivitamin (MVI) tabletIndications :Routine general medical examination at a health care facility Take 1 Tablet by mouth once daily. Gummy please 90 Tablet 3 4 Active psyllium powdIndications:C hronic constipation Mix 1 tsp in liquid then take by mouth once daily. 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 Irregular menses 03/12/2022 07/01/2023 Menorrhagia with irregular cycle 03/12/2022 07/01/2023 ABRASION, LOWER ARM W/O INFECTION 11/01/1997 07/01/2023 WOUND OPEN, FOREHEAD W/O COMPLICATION 11/01/1997 07/01/2023 CONTUSION, HIP, RIGHT 11/01/19972023 Encounters Date Type Department Care Team Description 10/13/2024 9:00 AM CDT Telemedicine [facility] [address] [place] [id number] Becky Lewis, BUFFER OPERATOR Individual Therapy; Telehealth from Last 3 Months Immunizations Immunization Administration Dates Next Due AMB Influenza, IIV4 PF (=>6 mos Flulaval,Fluzone Fluarix)(Flu Clinic Only) 03/23/2020 Hepatitis A (Peds) 08/13/2007,12/04/2006 Hepatitis B (Peds) 05/14/1999,07/26/1998, 998 Human Papilloma Virus Vaccine 04/27/2009, 008,12/04/2006 Influenza A (H1N1), Inactivated 04/25/2009,03/23 Influenza A (H1N1), Inactiva pauline (Age >=3 Years) 03/23/2009 Influenza Virus, Unspecified 05/14/1999 Influenza, IIV3 (Age >=3 years) 03/31/2008,05/08 Influenza, IIV4 03/05/2017,04/10/2016 Influenza,LAIV3 Live Intrana purnima (Flumist) 03/11/2024,05/18/2014,05/20/2013 Influenza,LAIV4 Live Intrana purnima (Flumist) 03/25/2023,03/12/2022,04/04/2021,03/24,04/09/2018,05/18/2014,05/20/2013 MMR 07/05/2001 Meningococcal Vaccine (Menactra) 02/06/2005 Pneumococcal Conj 20-valent (Prevnar 20) 03/25/2023 Tdap 03/24/2019,10/17/2010,02/09/2003 Family History Medical History Relation Name Comments Hyperlipidemia Father Cancer-breast Other maternal cousi n, has breast cancer at age 35. Relation Name Status Comments Father Alive Mother Alive Other Social History Tobacco Use Types Packs/Day Years Used Date Smoking Tobacco: Never Passive Smoke Exposure: Never Smokeless Tobacco: Never Tobacco Cessation:Counseling Given: Yes Alcohol Use Standard Drinks/Week Comments Yes 0 (1 standard drink = 0.6 oz pur e alcohol) rare PHQ-2 Answer Date Recorded PHQ-2 TOTAL SCORE 2 04/06/2024 Social Connections Answer Date Recorded Frequency of Communication with Friends and Fami ly 0 03/25/2023 Financial Resource Strain Answer Date R ecorded Difficulty of Paying Living Expenses 3 03/25/2023 Difficulty of Paying Living Expenses Not on file 03/25/2023 Food Insecurity Answer Date Recorded Worried About Running Out of Food in the Last Ye ar 1 03/25/2023 Transportation Needs Answer Date Record ed Lack of Transportation (Medical) 1 03/25/2023 Housing Stability Answer Date Recorded Unable to Pay for Housing in the Last Year 1 03/25/2023 Comments No Sex and Gender Information Value Date Recorded Sex Assigned at Not on file 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 Gender Identity Not on file Sexual Orientation Not on file Occupation Industry Job Start Date Job End Date Not on file Not on file Not on file Not on file Obstetrics History Last Filed Vital Signs Vital Sign Reading Time Taken Comments Blood Pressure 112/78 03/11/2024 9:14 AM CDT man ual Pulse 75 03/11/2024 9:14 AM CDT Temperature 36.7 C (98 F) 03/25/2023 10:52 AM CDT Respiratory Rate 16 03/25/2023 10:52 AM CDT Oxygen Saturation 98% 03/11/2024 9:14 AM CDT Inhaled Oxygen Concentration - - Weight 79.4 kg (175 lb) 03/11/2024 9:14 AM CDT Height 162.7 cm (5' 4.06) 03/11/2024 9:14 AM CD T Body Mass Index 29.99 03/11/2024 9:14 AM CDT Plan of Treatment Upcoming Encounters Date Type Department Care Team (Late st Contact Info) Description 12/13/2024 10:45 AM CDT Telemedicine [facility] [address] [place] [phone] Becky Lewis, [facility] [address] [place] [address] Health Maintenance Due Date Last Done Comments HIV for age 15-65 2004 Hepatitis C screening for age 18-79 2007 BMI (ht and wt on same day) for age 18+ 03/11/2025 03/11/2024, 03/25/2023, 09/09/2022, Additional history exists Depression screening for age 12+ 04/06/2025 04/06/2024, 07/02/2023, 04/09/2022, Additional history exists Tetanus booster 03/24/2029 03/24/2019, 10/2010, 02/09/2003 Hepatitis B series for 19+ Completed 05/14, 07/26/1998, 07/03/1997 Tdap Completed 03/24/2019, 10/2010, 10/17/2010 (Completed [facility]), Additional history exists Pneumococcal series for age 6-49 Aged Out 03/25/2023 No longer eligible based on patient's age to complete this topic COVID-19 vaccine series Completed 02/21/20, 04/22/2023, 03/04/2022, Additional history exists Influenza Vaccine Completed 03/11/2024, , 03/12/2022, Additional history exists Insurance MEDICAID MEDICARE [place] ONLY MEDICARE PART A HB ONLY MEDICARE PART B HB ONLY Care Teams Gear And Spline Grinder Relationship Specialty Start Date End Date Irene Mason MD [address] [place] [address] PCP - General Family Practice 08/11/18 Becky Lewis, [facility] [address] [place] [address] Tax Intern 08/07/23
[2024-11-25 14:35] VITALS: BP 116/80; PULSE 70; RESP 16; O2SAT 99
== END 2024-11-25 15:30 | disposition home or self-care (01) ==
PROVIDERS: Emergency Provider Internal Medicine; PCP Family Medicine
DX: M79.604 Pain in right leg (principal); Z86.718 Personal history of other venous thrombosis and embolism
CPT/HCPCS: 93971; 99283; 99284